=== PATIENT | female | born 1990 | race African-American/Black ===

== ENCOUNTER 2016-10-06 19:12 | Emergency (ER) | payer OTHER ==
--- NOTE | 2016-10-06 21:13 | EKG REPORT ---
SEVERITY:- OTHERWISE NORMAL ECG - SINUS TACHYCARDIA : Confirmed by: Noman Briseno MD 06-Oct-2016 21:12:30
--- NOTE | 2016-10-06 21:46 | ER Document Report ---
ED General - General Mode of Arrival: Ambulatory Information source: Patient TRAVEL OUTSIDE OF THE [place] IN LAST 30 DAYS: No <BEVERLY HINSON - Last Filed: 10/06/16 23:04> <GRANT WADE - Last Filed: 10/07/16 00:00> - General Chief Complaint: Chest Wall Pain Stated Complaint: CHEST DISCOMFORT Time Seen by Provider: 10/06/16 20:14 Notes: Patient is a 25 year old female who presents with 24-hour history of left-sided anterior wall chest pain. She endorses cough that also started 24 hours ago. She states "everything that makes the pain worse" and tried Tylenol, Advil and Tums with no relief of the pain. She states that the pain is worse with deep inspiration and movement of her left arm. Denies any fever, chills, shortness of breath, dyspnea on exertion, hemoptysis, or leg pain or lower extremity edema. She is no longer on oral contraception, last dose was September 19. She denies any recent travel longer than 1.5 hours. She denies any recent surgeries. (BEVERLY HINSON) - Related Data Allergies/Adverse Reactions: No Known Allergies Allergy (Verified 10/06/16 21:34) Past Medical History - Social History Smoking Status: Never Smoker Chew tobacco use (# tins/day): No Frequency of alcohol use: Occasional Drug Abuse: None Family History: Reviewed & Not Pertinent Patient has suicidal ideation: No Patient has homicidal ideation: No Neurological Medical History: Reports: Hx Migraine Renal/ Medical History: Denies: Hx Kidney Stones, Hx Peritoneal Dialysis Infectious Medical History: Denies: Hx HIV Past Surgical History: Reports: Hx Appendectomy, Hx Section - x2 - Immunizations Immunizations up to date: Yes Hx Diphtheria, Pertussis, Tetanus Vaccination: Yes <BEVERLY HINSON - Last Filed: 10/06/16 23:04> Review of Systems - Review of Systems Constitutional: See HPI EENT: No symptoms reported Cardiovascular: See HPI Respiratory: See HPI Gastrointestinal: No symptoms reported Genitourinary: No symptoms reported Female Genitourinary: No symptoms reported Musculoskeletal: No symptoms reported Skin: No symptoms reported Hematologic/Lymphatic: No symptoms reported Neurological/Psychological: No symptoms reported <BEVERLY HINSON - Last Filed: 10/06/16 23:04> Physical Exam <BEVERLY HINSON - Last Filed: 10/06/16 23:04> <GRANT WADE - Last Filed: 10/07/16 00:00> - Vital signs Vitals: Temp Pulse Resp BP Pulse Ox 99.3 F 110 H 18 115/73 98 10/06/16 19:34 10/06/16 19:34 10/06/16 19:34 10/06/16 19:34 10/06/16 19:34 - Notes Notes: PHYSICAL EXAM: CONSTITUTIONAL: Alert and oriented, well-appearing and in no acute distress. HENT: Normocephalic, atraumatic. Ear canals without erythema or foreign body, TMs pearly beltran with good bony landmarks. Nares clear without erythema, septal hematoma or deviation, airway patent. Oropharynx clear without erythema, tonsilar exudate or malocclusion. Trachea midline. Uvula midline. Moist mucous membranes. EYES: Pupils equal round and reactive to light, EOM intact. Sclera anicteric, conjunctiva are normal. No entrapment. NECK: supple without lymphadenopathy. No midline tenderness or paraspinous muscle spasms. No step-offs or deformities. ROM intact. HEART: Regular rate and rhythm without murmurs. LUNGS: CTAB and equal. No wheezes, rales or rhonchi. GI: Normactive bowel sounds. Nontender, non-distended. No organomegaly. no CVAT. 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 No rashes or lesions. No vaginal discharge or vaginal bleeding. Cervix without lesions. No cervical motion tenderness. BACK: nontender, no paraspinous spasm, 5+/5 strengths, DTRs 2+, SLR -. EXTREMITIES: Normal range of motion, no pitting edema. No cyanosis. Cap Refill < 3 seconds. NEURO: Cranial nerves grossly intact. Normal sensory/motor exams. PSYCH: Normal mood, normal affect. SKIN: Warm and dry. Normal turgor. No rashes or lesions noted. (BEVERLY HINSON) Course - Laboratory Result Diagrams: 10/06/16 21:05 10/06/16 21:05 <BEVERLY HINSON - Last Filed: 10/06/16 23:04> - Laboratory Result Diagrams: 10/06/16 21:05 10/06/16 21:05 <GRANT WADE Last Filed: 10/07/16 00:00> - Re-evaluation Re-evalutation: 10/06/16 20:21 Patient seen and examined. Chest pain is reproducible on exam, worse with deep inspiration and abduction of left arm. Stopped oral contraceptives approximately 1 month ago, denies any recent travel > 1.5 hours. WELLS CRITERIA: NO - Physical findings suggestive of DVT (unilateral leg swelling, calf or thigh tenderness) (3 points) NO - No alternative diagnosis better explains the illness (3 points) YES - Tachycardia with pulse >100 (1.5 points) NO - Immobilization (=3 days) or surgery in the previous four weeks (1.5 points ) NO - Prior history of DVT or pulmonary embolism (1.5 points) NO - Presence of hemoptysis (1 point) NO - Presence of malignancy (1 point) Total 1.5 points. Score <2: Low Probability for PE Suspect chest wall pain due to low Well's score and reproducible chest pain but with HR of 110 consistently with no prior documented episodes of tachycardia, will obtain d-dimer. If elevated, will proceed with CTA. 10/06/16 20:46 I have consulted with the supervisory physician, Dr. Cardona per [facility] guidelines. 10/06/16 21:30 elevated D-dimer 1.80. Will proceed with order for chest CTA. 10/06/16 23:07 Awaiting results of chest CTA - discussed care and management to this point with Rachel Mtz NP in signed out at end of my shift. (BEVERLY HINSON) - Vital Signs Vital signs: Temp Pulse Resp BP Pulse Ox 99.1 F 88 16 102/62 98 10/06/16 22:47 10/06/16 22:47 10/06/16 22:47 10/06/16 22:47 10/06/16 22:47 - Laboratory Laboratory results interpreted by me: 10/06/16 10/06/16 10/06/16 21:05 21:05 21:05 WBC 10.8 H D-Dimer 1.80 H Potassium 3.3 L BUN 6 L Discharge <BEVERLY HINSON - Last Filed: 10/06/16 23:04> <GRANT WADE - Last Filed: 10/07/16 00:00> - Discharge Clinical Impression: pneumonia left lower lobe Condition: Stable Disposition: HOME, SELF-CARE Additional Instructions: PNEUMONIA: Your examination indicates that you have pneumonia. This is an infection of the lung tissue, usually caused by bacteria or a virus. Symptoms include cough, fever, shaking chills, chest pain, shortness of breath, and coughing up bloody sputum. Treatment for bacterial pneumonia includes rest, antibiotics for 10 to 14 days, increasing your clear liquid intake, a cool mist humidifier at your bedside, and fever medication. Often, a repeat chest X-ray is performed in a few weeks--even if you feel better--to ascertain whether the infection has completely resolved and no underlying lung problem is present. You should call the physician if you develop persistent vomiting, high fever that does not respond to fever medication, increasing shortness of breath , confusion, or lethargy. Also, failure to improve within two to three days is an indication for re-examination. AZITHROMYCIN: Azithromycin (Zithromax) is a broad spectrum antibiotic in the same class as erythromycin. It can treat a variety of bacterial infections, but is most frequently used for respiratory infections. Azithromycin is extremely long-lasting. It accumulates in body tissues and continues to kill bacteria for many days. In order to improve absorption, Azithromycin should be taken at least one hour before or two hours after a meal. It does not have the same strong tendency to upset the stomach as erythromycin and is usually very well tolerated. Patients who have had a rash or other true allergic reactions to erythromycin should not take this medication. Call if you develop gastrointestinal distress, severe diarrhea, rash, hives, itching, or shortness of breath. FOLLOW-UP CARE: If you have been referred to a physician for follow-up care, call the physician s office for an appointment as you were instructed or within the next two days. If you experience worsening or a significant change in your symptoms, notify the physician immediately or return to the Emergency Department at any time for re-evaluation. Prescriptions: Azithromycin [Zithromax 250 mg Tablet] 250 mg PO ASDIR PRN #6 tablet PRN Reason: Forms: Return to Work Referrals: CELSO SCHMITZ MD [Primary Care Provider] - Follow up in 3-5 days
[2016-10-06 22:04] LABS: PROTHROMBIN TIME 14.5 SEC (11.4-15.4)
[2016-10-06 22:09] LABS: ALANINE AMINOTRANSFERASE 26 U/L (9-52); ALBUMIN 3.9 g/dL (3.5-5.0); ALKALINE PHOSPHATASE 79 U/L (38-126); ANION GAP 12 (5-19); ASPARTATE AMINO TRANSFERASE 18 U/L (14-36); BILIRUBIN,DIRECT 0.3 mg/dL (0.0-0.4); BILIRUBIN,TOTAL 0.8 mg/dL (0.2-1.3); BLOOD UREA NITROGEN 6 mg/dL (7-20); CALCIUM 9.1 mg/dL (8.4-10.2); CARBON DIOXIDE 25 mmol/L (22-30); CHLORIDE 105 mmol/L (98-107); CREATININE RESULT 0.63 mg/dL (0.52-1.25); GLUCOSE 97 mg/dL (75-110); POTASSIUM 3.3 mmol/L (3.6-5.0); SODIUM 141.8 mmol/L (137-145); TOTAL PROTEIN 7.1 g/dL (6.3-8.2)
[2016-10-06 22:17] LABS: ABSOLUTE EOSINOPHILS # (AUTO) 0.3 10^3/uL (0.0-0.6); ABSOLUTE LYMPHOCYTES (AUTO) 1.9 10^3/uL (0.5-4.7); ABSOLUTE NEUT (AUTO) 7.7 10^3/uL (1.7-8.2); BASOPHILS % (AUTO) 0.4 % (0-2); EOSINOPHILS % (AUTO) 2.7 % (0-6); HEMATOCRIT 42.4 % (36.0-47.0); HGB HCT DIFFERENCE -0.4; LYMPHOCYTES % (AUTO) 17.3 % (13-45); MEAN CORPUSCULAR HEMOGLOBIN 27.6 pg (27.0-33.4); MEAN CORPUSCULAR HGB CONC 32.9 g/dL (32.0-36.0); MEAN CORPUSCULAR VOLUME 84 fl (80-97); RED BLOOD COUNT 5.06 10^6/uL (3.72-5.28); RED CELL DISTRIBUTION WIDTH 12.9 % (11.5-14.0); SEGMENTED NEUTROPHILS % (AUTO) 70.6 % (42-78); WHITE BLOOD COUNT 10.8 10^3/uL (4.0-10.5)
--- NOTE | 2016-10-06 23:04 | RADIOLOGY REPORT (SQ) ---
EXAM DESCRIPTION: CTA CHEST COMPLETED DATE/TIME: 10/06/2016 10:03 pm REASON FOR STUDY: Eval for PE, elevated D-dimer(1.80), left side chest pain COMPARISON: None. TECHNIQUE: CT scan of the chest performed using helical scanning technique with dynamic intravenous contrast injection. Images reviewed with lung, soft tissue and bone windows. Reconstructed coronal and sagittal MPR images reviewed. Additional 3 dimensional post-processing performed to develop Maximal Intensity Projection images (HI P). All images stored on PACS. All CT scanners at this facility use dose modulation, iterative reconstruction, and/or weight based d osing when appropriate to reduce radiation dose to as low as reasonably achievable (ALARA). [facility]: Dose Right [facility]: CareDose [facility]: Dose Right [facility]: Teradose 4D [facility]: [employer] Cars CONTRAST TYPE AND DOSE: contrast/concentration: Isovue 370.00 mg/ml; Total Contrast Delivered: 61.0 ml; Total Saline Delivered: 100.0 ml RENAL FUNCTION: None required. The patient is less than 50 years old. RADIATION DOSE: Up-to-date CT equipment and radiation dose reduction techniques were employed. CTDIv ol: 14.3 - 16.5 mGy. DLP: 465 mGy-cm. . LIMITATIONS: None. FINDINGS: LUNGS AND PLEURA: Some ground-glass densities noted in the left lower lobe. There is some focal consolidations also noted in the left lower lobe. Concerning for possible infiltrate. No mas s lesions. No pneumothorax. No significant pleural effusion. AORTA AND GREAT VESSELS: No aneurysm or dissection. HEART: No pericardial effusion. PULMONARY ARTERIES: No emboli visualized in the main pulmonary arteries or the segmental branches. HILAR AND MEDIASTINAL STRUCTURES: Mild soft tissues prominence in the left hilum likely representing reactive adenopathy. No mediastinal adenopathy. No right hilar adenopathy. HARDWARE: None in the chest. UPPER ABDOMEN: No significant findings. Limited exam. THYROID AND OTHER SOFT TISSUES: No masses. No adenopathy. BONES: No acute or significant finding. 3D MIPS: Confirm above findings. OTHER: No other significant finding. IMPRESSION: 1. No acute pulmonary embolus identified 2. Focal consolidations in ground-glass densities noted in the left lower lobe concerning for infect ious infiltrate. Correlate clinically. No pleural effusion. No pneumothorax. TECHNICAL DOCUMENTATION: JOB ID: [id number] Quality ID # [id number]: Final reports with documentation of one or more dose reduction techniques (e.g., Au tomated exposure control, adjustment of the mA and/or kV according to patient size, use of iterative reconstruction technique) 2010 [employer]- All Rights Reserved
[2016-10-06] MEDS ORDERED: AZITHROMYCIN 250 MG TABLET PO ONE (23:49)
[2016-10-07 00:05] VITALS: BP 104/63
== END 2016-10-07 00:05 | disposition home or self-care (01) ==
LOC: ER 19:12
DX: J18.9 Pneumonia, unspecified organism (principal); R07.89 Other chest pain; R05 Cough
CPT/HCPCS: 36415; 71275; 80053; 81025; 85025; 85379; 85610; 93005; 93010; 99284

== ENCOUNTER 2017-05-17 17:00 | Emergency (ER) | payer OTHER ==
[2017-05-17] MEDS ORDERED: ONDANSETRON 4 MG TAB.RAPDIS PO ONE (19:46)
[2017-05-17] MEDS ORDERED: GUAIFENESIN 600 MG TABLET.SA PO ONE (19:46)
[2017-05-17] MEDS ORDERED: PSEUDOEPHEDRINE HCL 30 MG TABLET PO ONE (19:46)
[2017-05-17] MEDS ORDERED: IBUPROFEN 600 MG TABLET PO ONE (19:46)
[2017-05-17] MEDS ORDERED: LORATADINE 10 MG TABLET PO ONE (19:47)
--- NOTE | 2017-05-17 20:12 | ER Document Report ---
ED Respiratory Problem - General Chief Complaint: Cold Symptoms Stated Complaint: COLD SYMPTOMS Time Seen by Provider: 05/17/17 19:46 Mode of Arrival: Ambulatory Information source: Patient Notes: 26-year-old female presents to ED for cough cold congestion body aches but does not have any fever. She states she has been sick since Thursday morning. She states she has been taken [id number] TheraFlu with no relief. She states she was worried that she had the flu. TRAVEL OUTSIDE OF THE [place] IN LAST 30 DAYS: No - HPI Patient complains to provider of: Cough Onset: Other - Body Duration: Continuous Initiating Event: URI Quality of pain: Achy Severity: Moderate Pain Level: 4 Cough: Nonproductive Sputum amount: None Associated symptoms: Congestion, Cough, PND, Runny nose, Sinus pain/pressure, Other - Body aches. 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 denies: Thyroid Disfunction Patient has suicidal ideation: No Patient has homicidal ideation: No - Past Medical History Cardiac Medical History: Reports: None Pulmonary Medical History: Reports: Hx Pneumonia EENT Medical History: Reports: None Neurological Medical History: Reports: Hx Migraine Endocrine Medical History: Reports: None Renal/ Medical History: Reports: None Malignancy Medical History: Reports: None GI Medical History: Reports: None Musculoskeltal Medical History: Reports None Skin Medical History: Reports None Psychiatric Medical History: Reports: None Traumatic Medical History: Reports: None Past Surgical History: Reports: Hx Appendectomy, Hx Section - x2 - Immunizations Immunizations up to date: Yes Hx Diphtheria, Pertussis, Tetanus Vaccination: Yes Review of Systems - Review of Systems Notes: Constitutional: [PRESENT: as per HPI. ABSENT: chills, fever(s), headache(s), weight gain, weight loss] body aches Eyes: [ABSENT: visual disturbances] Ears: [ABSENT: hearing changes] Nasopharyngeal: Runny nose alternating with congestion, drainage in her throat, Cardiovascular: [ABSENT: chest pain, dyspnea on exertion, edema, orthropnea, palpitations] Respiratory: [ABSENT:hemoptysis] nonproductive cough Gastrointestinal: [ABSENT: abdominal pain, constipation, diarrhea, hematemesis, hematochezia, nausea, vomiting] Genitourinary: [ABSENT: dysuria, hematuria] Musculoskeletal: [ABSENT: joint swelling] body aches Integumentary: [ABSENT: rash, wounds] Neurological: [ABSENT: abnormal gait, abnormal speech, confusion, dizziness, focal weakness, syncope] Psychiatric: [ABSENT: anxiety, depression, homicidal ideation, suicidal ideation ] Endocrine: [ABSENT: cold intolerance, heat intolerance, menstrual abnormalities , polydipsia, polyuria] Hematologic/Lymphatic: [ABSENT: easy bleeding, easy bruising, lymphadenopathy] Physical Exam - Vital signs Vitals: Temp Pulse Resp BP Pulse Ox 98.6 F 64 16 109/70 99 05/17/17 17:32 05/17/17 17:32 05/17/17 17:32 05/17/17 17:32 05/17/17 17:32 - Notes Notes: PHYSICAL EXAMINATION: GENERAL: Well-appearing, well-nourished and in no acute distress. HEAD: Atraumatic, normocephalic. EYES: Pupils equal round and reactive to light, extraocular movements intact, conjunctiva are normal. ENT: Erythematous swollen nasal turbinates with yellow-green drainage, postnasal drip with cobblestone pattern to oropharynx. No hypertrophy or exudate to tonsils NECK: Normal range of motion, supple without lymphadenopathy LUNGS: Breath sounds clear to auscultation bilaterally and equal. No wheezes rales or rhonchi. Nonproductive cough HEART: Regular rate and rhythm without murmurs ABDOMEN: Soft, nontender, nondistended abdomen. No guarding, no rebound. No masses appreciated. Female : deferred Musculoskeletal: Normal range of motion, no pitting or edema. No cyanosis. No muscle tenderness but states she has body aches NEUROLOGICAL: Cranial nerves grossly intact. Normal speech, normal gait. Normal sensory, motor exams PSYCH: Normal mood, normal affect. SKIN: Warm, Dry, normal turgor, no rashes or lesions noted. Course - Vital Signs Vital signs: Temp Pulse Resp BP Pulse Ox 98.5 F 62 16 104/72 100 05/17/17 20:32 05/17/17 20:32 05/17/17 20:32 05/17/17 20:32 05/17/17 20:32 Discharge - Discharge Clinical Impression: URI (upper respiratory infection) Qualifiers: URI type: unspecified URI Qualified Code(s): J06.9 - Acute upper respiratory infection, unspecified Condition: Stable Disposition: HOME, SELF-CARE Instructions: Family Physicians / Practices Additional Instructions: UPPER RESPIRATORY ILLNESS: You have a viral infection of the respiratory passages -- a "cold." This common infection causes nasal congestion, drainage, and often sore throat and cough. It is highly contagious. The disease usually lasts about 10 to 14 days. There is no "cure" for the viral infection -- it must run its course. If there is a complication, such as bacterial infection in the nose, sinuses, middle ear, or bronchial tubes, antibiotics may be required. The antibiotics won't affect the virus. Drink plenty of fluids. A humidifier may help. An expectorant medication or decongestant may make you more comfortable. Use acetaminophen or ibuprofen for fever or aches. See the doctor if fever persists over two days, if there is any significant worsening of your symptoms, or if you simply fail to improve as expected. You have been treated with Claritin 10 mg, Sudafed 30 mg, Mucinex 600 mg, and ibuprofen 600 mg for your cough and cold symptoms. These are all over-the- counter medications that she can get from your local pharmacy. You were treated with Zofran 8 mg ODT which I will write you prescription for for your nausea and vomiting. Please follow-up with your primary doctor DECONGESTANT MEDICATION: A decongestant medicine has been suggested. Often this medicine is combined in the same tablet with an antihistamine or expectorant. This type of medicine is helpful in treating a bad cold or sinus condition, as well as in treatment of the nasal congestion of hay fever. It is not of much benefit for lung infections. Decongestant medicines are related to stimulants. They can cause an increase in blood pressure and heart rate. Persons with heart disease and high blood pressure should not take decongestants without discussing this with the physician. If you develop palpitations, chest pain, headache, or tremors, stop the medicine and consult your physician. COUGH-SUPPRESSANT & EXPECTORANT MEDICATION: You are to use a cough medication as needed for relief of symptoms. This medicine is a combination of an expectorant (to make the mucous thinner and more easily "coughed up") and a cough suppressant (to reduce the frequency of coughing). The cough-suppressant medicine is related to narcotics. You may experience mild nausea and sleepiness. Some patients who are very sensitive to narcotics may have stomach pain from this medicine. Taking the medicine with food reduces these side effects. Do not drive or work with machinery until you know how this medicine affects you. The expectorant should have no side effects. Iodine-containing expectorants (such as organidin) should not be taken by persons with active thyroid disease unless approved by your doctor. Call the doctor if you develop shortness of breath, hives, rash, itching, lightheadedness, or severe nausea and vomiting. USE OF ACETAMINOPHEN (Tylenol): Acetaminophen may be taken for pain relief or fever control. It's much safer than aspirin, offering a wider range of "safe" dosages. It is safe during . Some brand names are Tylenol, Panadol, Datril, Anacin 3, Tempra, and Liquiprin. Acetaminophen can be repeated every four hours. The following are maximum recommended dosages: >89 pounds or adults 650 mg to 900 mg Acetaminophen can be repeated every four hours. Maximum dose not to exceed 4000 mg a day. Antinausea Medication You have been given a medication to suppress nausea and vomiting. This type of medication can be given as a shot, pill, or suppository. It will usually last for many hours. Pills and shots usually last six to eight hours, suppositories last about 12 hours. For the typical illness, only one or two doses of the medication may be necessary. Mild lightheadedness may occur. This type of medicine can cause drowsiness. Do not drive or operate dangerous machinery while under its influence. Do not mix with alcohol. See your doctor at once if you have muscle spasms or tightness, or uncontrollable motions (particularly of the neck, mouth, or jaw). Persistent vomiting or severe lightheadedness should also be evaluated by the physician. FOLLOW-UP CARE: If you have been referred to a physician for follow-up care, call the physician s office for an appointment as you were instructed or within the next two days. If you experience worsening or a significant change in your symptoms, notify the physician immediately or return to the Emergency Department at any time for re-evaluation. Prescriptions: Ondansetron [Zofran Odt 4 mg Tablet] 1 tab PO Q6H #15 tab.rapdis Forms: Return to Work
[2017-05-17 20:33] VITALS: BP 104/72
== END 2017-05-17 20:32 | disposition home or self-care (01) ==
LOC: ER 17:00
DX: J06.9 Acute upper respiratory infection, unspecified (principal); R05 Cough; R09.81 Nasal congestion; M79.1 Myalgia; R09.89 Other specified symptoms and signs involving the circulatory and respiratory systems
CPT/HCPCS: 99283; S0119

== ENCOUNTER 2017-09-15 19:58 | Emergency (ER) | payer OTHER ==
[2017-09-15 22:23] LABS: APPEARANCE,URINE CLEAR; BILIRUBIN,URINE NEGATIVE (NEGATIVE); COLOR,URINE YELLOW; GLUCOSE, URINE NEGATIVE (NEGATIVE); KETONES,URINE 20 mg/dL (NEGATIVE); LEUKOCYTE ESTERASE,URINE TRACE (NEGATIVE); NITRITE,URINE NEGATIVE (NEGATIVE); PROTEIN,URINE NEGATIVE (NEGATIVE); URINE SPECIFIC GRAVITY 1.012; UROBILINOGEN,URINE NEGATIVE mg/dL (<2.0)
[2017-09-15 22:26] LABS: HEMATOCRIT 41.5 % (36.0-47.0); HEMOGLOBIN 14.2 g/dL (12.0-15.5); MEAN CORPUSCULAR HEMOGLOBIN 28.9 pg (27.0-33.4); MEAN CORPUSCULAR HGB CONC 34.2 g/dL (32.0-36.0); MEAN CORPUSCULAR VOLUME 84 fl (80-97); PLATELET COUNT 312 10^3/uL (150-450); RED BLOOD COUNT 4.92 10^6/uL (3.72-5.28); WHITE BLOOD COUNT 5.2 10^3/uL (4.0-10.5)
[2017-09-15 22:34] LABS: ALANINE AMINOTRANSFERASE 21 U/L (9-52); ALBUMIN 4.4 g/dL (3.5-5.0); ALKALINE PHOSPHATASE 69 U/L (38-126); ANION GAP 11 (5-19); ASPARTATE AMINO TRANSFERASE 21 U/L (14-36); BILIRUBIN,DIRECT 0.3 mg/dL (0.0-0.4); BILIRUBIN,TOTAL 0.8 mg/dL (0.2-1.3); BLOOD UREA NITROGEN 9 mg/dL (7-20); CALCIUM 9.8 mg/dL (8.4-10.2); CARBON DIOXIDE 24 mmol/L (22-30); CHLORIDE 106 mmol/L (98-107); GLUCOSE 110 mg/dL (75-110); POTASSIUM 3.9 mmol/L (3.6-5.0); SODIUM 141.2 mmol/L (137-145); TOTAL PROTEIN 7.2 g/dL (6.3-8.2)
[2017-09-15 22:44] LABS: ABSOLUTE LYMPHOCYTES# (MANUAL) 1.9 10^3/uL (0.5-4.7); ABSOLUTE MONOCYTES # (MANUAL) 0.3 10^3/uL (0.1-1.4); ABSOLUTE NEUTROPHILS# (MANUAL) 3.1 10^3/uL (1.7-8.2); BASOPHILS % (MANUAL) 0 % (0-2); EOSINOPHILS % (MANUAL) 0 % (0-6); LYMPHOCYTES % (MANUAL) 36 % (13-45); MONOCYTES % (MANUAL) 5 % (3-13); SEGMENTED NEUTROPHILS % (MAN) 59 % (42-78); TOTAL CELLS COUNTED 100
[2017-09-15 22:45] LABS: HYPOCHROMASIA SLIGHT
[2017-09-15 22:46] LABS: PLATELET COMMENT ADEQUATE; PLATELET LARGE PRESENT
[2017-09-15 22:47] LABS: POIKILOCYTOSIS SLIGHT; TEAR DROP CELLS SLIGHT
[2017-09-15] MEDS ORDERED: NORMAL SALINE 500 ML IV ONE (23:02)
--- NOTE | 2017-09-15 23:06 | ER Document Report ---
ED General - General Chief Complaint: Nausea/Vomiting Stated Complaint: DIZZY,NAUSEA,VOMITING Time Seen by Provider: 09/15/17 22:55 TRAVEL OUTSIDE OF THE [place] IN LAST 30 DAYS: No - HPI Notes: Patient is a 26-year-old female no significant past medical history aside from intermittent headaches who presents to the ED complaining of a frontal headache , nausea/vomiting, occasional dizziness 1-2 days. Patient states that she has vomited a couple times today, but has had nausea persistently. Patient states that the headache has been intermittent as well and does not radiate. Patient states that she does have some light sensitivity associated with her headache. Patient states that all the symptoms are normal for her when she is a headache. Last menstrual period was last week. Patient states that she is still urinating normally and having normal bowel movements. Denies any vaginal discharge, odor, or other bleeding. No other concerns or complaints at this time. Denies any fever, head injury, neck pain, changes in vision/speech/ mentation/hearing, URI, sore throat, chest pain, palpitations, syncope, cough, shortness of breath, wheeze, dyspnea, abdominal pain, diarrhea, urinary retention, dysuria, hematuria, back pain, joint pain, loss of control of bowel or bladder, numbness/tingling, muscle paralysis/weakness, or rash. - Related Data Allergies/Adverse Reactions: No Known Allergies Allergy (Verified 10/06/16 21:34) Past Medical History - Social History Smoking Status: Never Smoker Chew tobacco use (# tins/day): No Frequency of alcohol use: None Drug Abuse: None Family History: Arthritis, CAD, COPD, CVA, DM, Hyperlipidemia, Hypertension, Malignancy. denies: Thyroid Disfunction Patient has suicidal ideation: No Patient has homicidal ideation: No Pulmonary Medical History: Reports: Hx Pneumonia Neurological Medical History: Reports: Hx Migraine Renal/ Medical History: Denies: Hx Kidney Stones, Hx Peritoneal Dialysis Past Surgical History: Reports: Hx Appendectomy, Hx Section - x2 - Immunizations Immunizations up to date: Yes Hx Diphtheria, Pertussis, Tetanus Vaccination: Yes Review of Systems - Review of Systems -: Yes All other systems reviewed and negative Physical Exam - Vital signs Vitals: Temp Pulse Resp BP Pulse Ox 99.4 F 102 H 20 112/68 98 09/15/17 20:30 09/15/17 20:30 09/15/17 20:30 09/15/17 20:30 09/15/17 20:30 - Notes Notes: PHYSICAL EXAMINATION: GENERAL: Well-appearing, well-nourished and in no acute distress. A&Ox4. Answers questions appropriately. HEAD: Atraumatic, normocephalic. Non-tender. EYES: Pupils equal round and reactive to light, extraocular movements intact, sclera anicteric, conjunctiva are normal. no nystagmus. ENT: Nares patent and without discharge. oropharynx clear without exudates. No tonsilar hypertrophy or erythema. Moist mucous membranes. No sinus tenderness. NECK: Normal range of motion, supple without lymphadenopathy. No rigidity. No midline tenderness. Kernig/brudzinski neg. LUNGS: Breath sounds clear to auscultation bilaterally and equal. No wheezes rales or rhonchi. HEART: Regular rate and rhythm without murmurs, rubs, gallops. ABDOMEN: Soft, nontender, nondistended abdomen. No guarding, no rebound. No masses appreciated. Normal bowel sounds present. No CVA tenderness bilaterally. Musculoskeletal: Ext b/l: FROM to passive/active. Strength 5+/5. No deficits noted. No bony tenderness of extremities. Extremities: No cyanosis, clubbing, or edema b/l. Peripheral pulses 2+. Capillary refill less than 2 seconds. NEUROLOGICAL: NIH 0. GCS 15. Cranial nerves grossly intact. Normal speech, normal gait. Normal sensory, motor exams. Reflexes 2+ b/l. SUZIE's negative. Pronator drift negative. PSYCH: Normal mood, normal affect. SKIN: Warm, Dry, normal turgor, no rashes or lesions noted. Course - Re-evaluation Re-evalutation: 09/16/17 00:26 Patient is an afebrile, well-hydrated, 26-year-old female who presents to the ED with an acute UTI, headache, nausea/vomiting. Vitals are acceptable. PE is otherwise unremarkable for any focal neurological deficits. Suspect patient's headache is a migraine headache based on H&P. She has no significant tachycardia, tachypnea, or hypoxia. She is tolerating p.o. without difficulties. She is nontoxic-appearing. Patient has not had any episodes of emesis during her stay. Toradol, Compazine, Benadryl given today. Pt's BROWN resolved. Fluids also provided. CBC, CMP, HCG unremarkable. UC pending. First dose of Keflex given p.o. No other labs or imaging warranted at this time based on H&P. Patient's abdomen is otherwise soft and nontender. Low suspicion for any acute abdomen, acute glaucoma, temporal arteritis, meningitis , intracranial hemorrhage, ischemic stroke, or fracture at this time. Patient is aware that this condition can change from initial presentation and that she needs to monitor symptoms closely for any acute changes. No syndrome with a prescription for Keflex as well as Zofran. Conservative measures otherwise for symptoms. Recheck with your PCM in 3-5 days. Return to the ED with any worsening/concerning symptoms otherwise as reviewed in discharge. Patient is in agreement. - Vital Signs Vital signs: Temp Pulse Resp BP Pulse Ox 99.4 F 102 H 20 112/68 98 09/15/17 20:30 09/15/17 20:30 09/15/17 20:30 09/15/17 20:30 09/15/17 20:30 - Laboratory Result Diagrams: 09/15/17 21:54 09/15/17 21:54 Laboratory results interpreted by me: 09/15/17 21:54 Urine Ketones 20 H Urine Blood LARGE H Ur Leukocyte Esterase TRACE H Discharge - Discharge Clinical Impression: Acute UTI (urinary tract infection) Headache Qualifiers: Headache type: unspecified Headache chronicity pattern: acute headache Intractability: not intractable Qualified Code(s): R51 - Headache Condition: Stable Disposition: HOME, SELF-CARE Instructions: Antinausea Medication ([facility]), Cephalexin ([facility]), Headache ([facility]), Nausea or Vomiting, Nonspecific ([facility]), Urinary Tract Infection ([facility]) Additional Instructions: Push fluids (i.e. water, cranberry juice) Proper hygenic technique Keep the skin clean Tylenol/ibuprofen as needed May use over the counter AZO for burning with urination Take medications as directed F/u with your PCM in 3-5 days for a recheck Consider consult with a Urologist for ongoing/worsening symptoms. Return to the ED with any worsening symptoms and/or development of fever, headache, chest pain, palpitations, syncope, shortness of breath, trouble breathing, abdominal pain, n/v/d, blood in stool/urine, loss of control of bowel /bladder, urinary retention, or other worsening symptoms that are concerning to you. Prescriptions: Cephalexin Monohydrate [Keflex 500 mg Capsule] 500 mg PO BID #14 capsule Ondansetron [Zofran Odt 4 mg Tablet] 1 - 2 tab PO Q4H PRN #15 tab.rapdis PRN Reason: For Nausea/Vomiting Referrals: [facility] [Provider Group] - Follow up as needed [facility] [Provider Group] - Follow up as needed
[2017-09-15] MEDS ORDERED: KETOROLAC TROMETHAMINE INJ/PF 30 MG/1 ML SDV IV ONE (23:07)
[2017-09-15] MEDS ORDERED: PROCHLORPERAZINE EDISYLATE INJ 10 MG/2 ML VIAL IV ONE (23:07)
[2017-09-15] MEDS ORDERED: DIPHENHYDRAMINE HCL 50 MG/ML VIAL IV ONE (23:07)
[2017-09-16] MEDS ORDERED: CEPHALEXIN 500 MG CAPSULE PO ONE (00:28)
[2017-09-16 01:16] VITALS: BP 94/72
== END 2017-09-16 01:15 | disposition home or self-care (01) ==
LOC: ER 19:58
DX: N39.0 Urinary tract infection, site not specified (principal); R51 Headache; R42 Dizziness and giddiness; R11.2 Nausea with vomiting, unspecified; H53.149 Visual discomfort, unspecified; Z82.49 Family history of ischemic heart disease and other diseases of the circulatory system; Z83.3 Family history of diabetes mellitus; Z90.49 Acquired absence of other specified parts of digestive tract; Z98.890 Other specified postprocedural states
CPT/HCPCS: 99284; 96374; 96375; 36415; 87086; 84703; 85025; 87088; 80053; 81001; 87186; J1200; J1885; J0780; J7040

== ENCOUNTER 2018-11-05 15:29 | Emergency (ER) | payer OTHER ==
[2018-11-05] MEDS ORDERED: ONDANSETRON HCL INJ/PF 4 MG/2 ML SDV IV ONE (15:57)
[2018-11-05] MEDS ORDERED: NORMAL SALINE 1000 ML 1,000 ML IV ONE (15:57)
--- NOTE | 2018-11-05 16:00 | ER Document Report ---
ED Medical Screen (RME) - General Chief Complaint: Nausea/Vomiting Stated Complaint: VOMITING Time Seen by Provider: 11/05/18 15:51 Primary Care Provider: AGNES LANDRUM MD [Primary Care Provider] - Follow up as needed Notes: Patient is a 28-year-old female who presents emergency department with a chief complaint of vomiting. She states that she has been vomiting since 930 yesterday morning. She has vomited multiple times. Admits to one bout of diarrhea. Patient states that she still feels nauseous. Denies any abdominal pain, dysuria, chest pain, or any other symptoms. Last menstrual cycle was October 29. Patient has history of migraines, and appendectomy, anemia with blood transfusions in 2014. Exam: Soft, nontender abdomen. I have greeted and performed a rapid initial assessment of this patient. A comprehensive ED assessment and evaluation of the patient, analysis of test results and completion of medical decision making process will be conducted by an additional ED providers. TRAVEL OUTSIDE OF THE [place] IN LAST 30 DAYS: No - Related Data Allergies/Adverse Reactions: No Known Allergies Allergy (Verified 11/05/18 15:31) Past Medical History Pulmonary Medical History: Reports: Hx Pneumonia Neurological Medical History: Reports: Hx Migraine Renal/ Medical History: Denies: Hx Kidney Stones, Hx Peritoneal Dialysis Past Surgical History: Reports: Hx Appendectomy, Hx Section - x2 - Immunizations Immunizations up to date: Yes Hx Diphtheria, Pertussis, Tetanus Vaccination: Yes Physical Exam - Vital signs Vitals: Temp Pulse Resp BP Pulse Ox 98.9 F 100 16 110/66 97 11/05/18 15:30 11/05/18 15:30 11/05/18 15:30 11/05/18 15:30 11/05/18 15:30 Course - Vital Signs Vital signs: Temp Pulse Resp BP Pulse Ox 98.9 F 100 16 110/66 97 11/05/18 15:30 11/05/18 15:30 11/05/18 15:30 11/05/18 15:30 11/05/18 15:30 Doctor's Discharge - Discharge Referrals: AGNES LANDRUM MD [Primary Care Provider] - Follow up as needed
[2018-11-05 17:18] LABS: APPEARANCE,URINE CLOUDY; BILIRUBIN,URINE NEGATIVE (NEGATIVE); COLOR,URINE YELLOW; GLUCOSE, URINE NEGATIVE (NEGATIVE); KETONES,URINE 80 mg/dL (NEGATIVE); LEUKOCYTE ESTERASE,URINE MODERATE (NEGATIVE); NITRITE,URINE NEGATIVE (NEGATIVE); PROTEIN,URINE NEGATIVE (NEGATIVE); URINE SPECIFIC GRAVITY 1.015; UROBILINOGEN,URINE NEGATIVE mg/dL (<2.0)
[2018-11-05 17:43] LABS: ABSOLUTE LYMPHOCYTES (AUTO) 0.9 10^3/uL (0.5-4.7); ABSOLUTE MONOCYTES (AUTO) 0.2 10^3/uL (0.1-1.4); ABSOLUTE NEUT (AUTO) 2.4 10^3/uL (1.7-8.2); BASOPHILS % (AUTO) 0.9 % (0-2); EOSINOPHILS % (AUTO) 0.1 % (0-6); HEMATOCRIT 43.8 % (36.0-47.0); HEMOGLOBIN 14.8 g/dL (12.0-15.5); LYMPHOCYTES % (AUTO) 25.6 % (13-45); MEAN CORPUSCULAR HGB CONC 33.8 g/dL (32.0-36.0); MEAN CORPUSCULAR VOLUME 83 fl (80-97); PLATELET COUNT 316 10^3/uL (150-450); RED BLOOD COUNT 5.29 10^6/uL (3.72-5.28); RED CELL DISTRIBUTION WIDTH 12.9 % (11.5-14.0); SEGMENTED NEUTROPHILS % (AUTO) 68.4 % (42-78); TOTAL CELLS COUNTED % (AUTO) 100 %; WHITE BLOOD COUNT 3.6 10^3/uL (4.0-10.5)
--- NOTE | 2018-11-05 17:52 | ER Document Report ---
HPI - HPI Patient complains to provider of: Nausea vomiting diarrhea Time Seen by Provider: 11/05/18 15:51 Onset: Yesterday Onset/Duration: Persistent Quality of pain: No pain Pain Level: Denies Context: Patient presents reporting nausea vomiting and diarrhea that started yesterday. Patient's had diarrhea x1 episode today but has had numerous episodes of vomiting. Patient was seen in the triage area and given IV antinausea medication. Patient has not had any vomiting since then and has tolerated eating chicken nuggets. She denies any abdominal pain Associated Symptoms: Diarrhea, Nausea, Vomiting. denies: Nonproductive cough, Productive cough, Fever Exacerbated by: Denies Relieved by: Denies Similar symptoms previously: Yes Recently seen / treated by doctor: No - ROS ROS below otherwise negative: Yes Systems Reviewed and Negative: Yes All other systems reviewed and negative - CONSTITUTIONAL Constitutional: DENIES: Fever - NEURO Neurology: DENIES: Headache - RESPIRATORY Respiratory: DENIES: Coughing - GASTROINTESTINAL Gastrointestinal: REPORTS: Nausea, Patient vomiting, Diarrhea. 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 denies: Thyroid Disfunction Patient has suicidal ideation: No Patient has homicidal ideation: No Pulmonary Medical History: Reports: Hx Pneumonia Neurological Medical History: Reports: Hx Migraine Renal/ Medical History: Denies: Hx Kidney Stones, Hx Peritoneal Dialysis Past Surgical History: Reports: Hx Appendectomy, Hx Section - x2 - Immunizations Immunizations up to date: Yes Hx Diphtheria, Pertussis, Tetanus Vaccination: Yes Vertical Provider Document - CONSTITUTIONAL Agree With Documented VS: Yes Exam Limitations: No Limitations General Appearance: WD/WN, No Apparent Distress - INFECTION CONTROL TRAVEL OUTSIDE OF THE [place] IN LAST 30 DAYS: No - HEENT HEENT: Atraumatic, Normocephalic - NECK Neck: Normal Inspection, Supple. negative: Lymphadenopathy-Left, Lymphadenopathy-Right - RESPIRATORY Respiratory: Breath Sounds Normal, No Respiratory Distress - CARDIOVASCULAR Cardiovascular: Regular Rate, Regular Rhythm, No Murmur - GI/ABDOMEN Gastrointestinal: Abdomen Soft, Abdomen Non-Tender, No Organomegaly, Normal Bowel Sounds - BACK Back: Normal Inspection. negative: CVA Tenderness-Right, CVA Tenderness-Left - MUSCULOSKELETAL/EXTREMETIES Musculoskeletal/Extremeties: BREEZY FROM - NEURO Level of Consciousness: Awake, Alert, Appropriate Motor/Sensory: No Motor Deficit - DERM Integumentary: Warm, Dry, No Rash Course - Re-evaluation Re-evalutation: 11/05/18 18:27 Patient denies any nausea or vomiting since receiving the medication. Abdomen soft nontender. Patient nontoxic in appearance. Patient with incidental UTI noted on urinalysis. - Vital Signs Vital signs: Temp Pulse Resp BP Pulse Ox 98.9 F 100 16 110/66 97 11/05/18 15:30 11/05/18 15:30 11/05/18 15:30 11/05/18 15:30 11/05/18 15:30 - Laboratory Result Diagrams: 11/05/18 17:20 11/05/18 17:20 Laboratory results interpreted by me: 11/05/18 16:00 Urine Ketones 80 H Urine Blood MODERATE H Ur Leukocyte Esterase MODERATE H 11/05/18 18:27 Labs- Entire Visit 11/05/18 11/05/18 11/05/18 16:00 17:20 17:20 WBC 3.6 L RBC 5.29 H Hgb 14.8 Hct 43.8 MCV 83 MCH 28.0 MCHC 33.8 RDW 12.9 Plt Count 316 Seg Neutrophils % 68.4 Lymphocytes % 25.6 Monocytes % 5.0 Eosinophils % 0.1 Basophils % 0.9 Absolute Neutrophils 2.4 Absolute Lymphocytes 0.9 Absolute Monocytes 0.2 Absolute Eosinophils 0.0 Absolute Basophils 0.0 Sodium 139.5 Potassium 4.5 Chloride 103 Carbon Dioxide 26 Anion Gap 11 BUN 10 Creatinine 0.71 Est GFR ( Amer) > 60 Est GFR (Non-Af Amer) > 60 Glucose 96 Calcium 10.2 Total Bilirubin 1.0 Direct Bilirubin 0.5 H Neonat Total Bilirubin Not Reportable Neonat Direct Bilirubin Not Reportable Neonat Indirect Bili Not Reportable AST 44 H ALT 19 Alkaline Phosphatase 81 Total Protein 9.1 H Albumin 5.1 H Lipase 102.6 Serum HCG, Qual Urine Color YELLOW Urine Appearance CLOUDY Urine pH 5.0 Ur Specific [place] 1.015 Urine Protein NEGATIVE Urine Glucose (UA) NEGATIVE Urine Ketones 80 H Urine Blood MODERATE H Urine Nitrite NEGATIVE Urine Bilirubin NEGATIVE Urine Urobilinogen NEGATIVE Ur Leukocyte Esterase MODERATE H Urine WBC (Auto) 37 Urine RBC (Auto) 12 Urine Bacteria (Auto) 2+ Squamous Epi Cells Auto 29 Urine Mucus (Auto) MOD Urine Ascorbic Acid NEGATIVE 11/05/18 17:20 WBC RBC Hgb Hct MCV MCH MCHC RDW Plt Count Seg Neutrophils % Lymphocytes % Monocytes % Eosinophils % Basophils % Absolute Neutrophils Absolute Lymphocytes Absolute Monocytes Absolute Eosinophils Absolute Basophils Sodium Potassium Chloride Carbon Dioxide Anion Gap BUN Creatinine Est GFR ( Amer) Est GFR (Non-Af Amer) Glucose Calcium Total Bilirubin Direct Bilirubin Neonat Total Bilirubin Neonat Direct Bilirubin Neonat Indirect Bili AST ALT Alkaline Phosphatase Total Protein Albumin Lipase Serum HCG, Qual NEGATIVE Urine Color Urine Appearance Urine pH Ur Specific [place] Urine Protein Urine Glucose (UA) Urine Ketones Urine Blood Urine Nitrite Urine Bilirubin Urine Urobilinogen Ur Leukocyte Esterase Urine WBC (Auto) Urine RBC (Auto) Urine Bacteria (Auto) Squamous Epi Cells Auto Urine Mucus (Auto) Urine Ascorbic Acid Discharge - Discharge Clinical Impression: Nausea vomiting and diarrhea UTI (urinary tract infection) Qualifiers: Urinary tract infection type: site unspecified Hematuria presence: with hematuria Qualified Code(s): N39.0 - Urinary tract infection, site not specified Condition: Stable Disposition: HOME, SELF-CARE Instructions: Antinausea Medication ([facility]), Cephalexin ([facility]), Diarrhea, Nonspecific ([facility]), Intravenous (IV) Fluids ([facility]), Urinary Tract Infection ([facility]), Vomiting ([facility]) Additional Instructions: Return immediately for any new or worsening symptoms Followup with your primary care provider, call tomorrow to make a followup appointment Urine culture is pending, we will call if you need any different treatment Prescriptions: Cephalexin Monohydrate [Keflex 500 mg Capsule] 500 mg PO BID 5 Days capsule Ondansetron HCl [Zofran 4 mg Tablet] 1 - 2 tab PO Q6 PRN #15 tablet PRN Reason: Forms: Return to Work Referrals: AGNES LANDRUM MD [Primary Care Provider] - Follow up as needed
[2018-11-05 18:03] LABS: ALBUMIN 5.1 g/dL (3.5-5.0); ALKALINE PHOSPHATASE 81 U/L (38-126); ANION GAP 11 (5-19); ASPARTATE AMINO TRANSFERASE 44 U/L (14-36); BILIRUBIN,DIRECT 0.5 mg/dL (0.0-0.4); BLOOD UREA NITROGEN 10 mg/dL (7-20); CALCIUM 10.2 mg/dL (8.4-10.2); CARBON DIOXIDE 26 mmol/L (22-30); CHLORIDE 103 mmol/L (98-107); GLUCOSE 96 mg/dL (75-110); POTASSIUM 4.5 mmol/L (3.6-5.0); TOTAL PROTEIN 9.1 g/dL (6.3-8.2)
[2018-11-05 18:46] VITALS: BP 120/67
== END 2018-11-05 18:45 | disposition home or self-care (01) ==
LOC: ER 15:29
DX: N39.0 Urinary tract infection, site not specified (principal); R11.2 Nausea with vomiting, unspecified; R19.7 Diarrhea, unspecified
CPT/HCPCS: 36415; 87086; 83690; 84703; 85025; 87088; 80053; 81001; 87186; J2405; J7030; 96361; 96374; 99284

== ENCOUNTER 2018-12-27 19:30 | Emergency (ER) | payer OTHER ==
--- NOTE | 2018-12-27 21:06 | ER Document Report ---
ED Medical Screen (RME) - General Chief Complaint: Back Pain Stated Complaint: LOWER BACK PAIN Time Seen by Provider: 12/27/18 20:50 Primary Care Provider: AGNES LANDRUM MD [Primary Care Provider] - Follow up as needed TRAVEL OUTSIDE OF THE [place] IN LAST 30 DAYS: No - HPI Notes: 12/27/18 21:03 Patient is a 28-year-old G3, P2 female presenting with a chief complaint of left flank pain that woke her from sleep approximately 16 hours prior to presentation. Patient states that she is approximately 8 weeks and was seen by her jinrikisha driver 4 days ago; patient states that the provider said "everything looked fine." Patient denies vaginal bleeding. Patient states her to prior pregnancies were carried to term and she underwent for both of them. Patient states she has had one episode of nausea and vomiting. Patient denies dysuria, history of kidney stones, recent trauma. I have treated and performed a rapid initial assessment of this patient. C opperhead to the ED assessment and evaluation of the patient, analysis of the test results, and completion of medical decision making process will be conducted by additional ED providers. - Related Data Allergies/Adverse Reactions: No Known Allergies Allergy (Verified 11/05/18 15:31) Past Medical History - Social History Chew tobacco use (# tins/day): No Frequency of alcohol use: None Drug Abuse: None Pulmonary Medical History: Reports: Hx Pneumonia Neurological Medical History: Reports: Hx Migraine Renal/ Medical History: Denies: Hx Kidney Stones, Hx Peritoneal Dialysis Past Surgical History: Reports: Hx Appendectomy, Hx Section - x2 - Immunizations Immunizations up to date: Yes Hx Diphtheria, Pertussis, Tetanus Vaccination: Yes Physical Exam - Vital signs Vitals: Temp Pulse Resp BP Pulse Ox 98.0 F 111 H 18 111/69 100 12/27/18 19:57 12/27/18 19:57 12/27/18 19:57 12/27/18 19:57 12/27/18 19:57 - General General appearance: Appears well, Alert In distress: None - Respiratory Respiratory status: No respiratory distress - Cardiovascular Rhythm: Regular Heart sounds: Normal auscultation - Abdominal Inspection: Normal Distension: No distension Bowel sounds: Normal - Back Back: CVA tenderness - Positive CVA tenderness to light percussion on patient's left side. Course - Vital Signs Vital signs: Temp Pulse Resp BP Pulse Ox 98.0 F 111 H 18 111/69 100 12/27/18 19:57 12/27/18 19:57 12/27/18 19:57 12/27/18 19:57 12/27/18 19:57 Doctor's Discharge - Discharge Referrals: AGNES LANDRUM MD [Primary Care Provider] - Follow up as needed
[2018-12-27 21:30] LABS: APPEARANCE,URINE CLOUDY; BILIRUBIN,URINE NEGATIVE (NEGATIVE); COLOR,URINE YELLOW; GLUCOSE, URINE NEGATIVE (NEGATIVE); KETONES,URINE TRACE mg/dL (NEGATIVE); LEUKOCYTE ESTERASE,URINE LARGE (NEGATIVE); NITRITE,URINE NEGATIVE (NEGATIVE); PROTEIN,URINE 100 mg/dL (NEGATIVE); URINE SPECIFIC GRAVITY 1.011
[2018-12-27 22:00] LABS: ABSOLUTE BASOPHILS # (AUTO) 0.1 10^3/uL (0.0-0.2); ABSOLUTE MONOCYTES (AUTO) 0.7 10^3/uL (0.1-1.4); ABSOLUTE NEUT (AUTO) 6.8 10^3/uL (1.7-8.2); BASOPHILS % (AUTO) 0.7 % (0-2); EOSINOPHILS % (AUTO) 0.4 % (0-6); HEMATOCRIT 37.7 % (36.0-47.0); LYMPHOCYTES % (AUTO) 20.7 % (13-45); MEAN CORPUSCULAR HEMOGLOBIN 28.4 pg (27.0-33.4); MEAN CORPUSCULAR HGB CONC 34.5 g/dL (32.0-36.0); MEAN CORPUSCULAR VOLUME 82 fl (80-97); PLATELET COUNT 326 10^3/uL (150-450); RED BLOOD COUNT 4.58 10^6/uL (3.72-5.28); RED CELL DISTRIBUTION WIDTH 13.6 % (11.5-14.0); SEGMENTED NEUTROPHILS % (AUTO) 71.2 % (42-78); TOTAL CELLS COUNTED % (AUTO) 100 %; WHITE BLOOD COUNT 9.6 10^3/uL (4.0-10.5)
[2018-12-27 22:15] LABS: ALBUMIN 4.4 g/dL (3.5-5.0); ALKALINE PHOSPHATASE 60 U/L (38-126); ANION GAP 9 (5-19); ASPARTATE AMINO TRANSFERASE 18 U/L (14-36); BILIRUBIN,DIRECT 0.1 mg/dL (0.0-0.4); BILIRUBIN,TOTAL 0.6 mg/dL (0.2-1.3); BLOOD UREA NITROGEN 7 mg/dL (7-20); CALCIUM 9.7 mg/dL (8.4-10.2); CARBON DIOXIDE 28 mmol/L (22-30); CHLORIDE 100 mmol/L (98-107); GLUCOSE 93 mg/dL (75-110); POTASSIUM 4.1 mmol/L (3.6-5.0); TOTAL PROTEIN 7.3 g/dL (6.3-8.2)
--- NOTE | 2018-12-27 22:43 | RADIOLOGY REPORT (SQ) ---
EXAM DESCRIPTION: US TRANSVAGINAL COMPLETED DATE/TME: 12/27/2018 21:00 CLINICAL HISTORY: 28 years, Female, 8 weeks with left flank pain Findings: The uterus is retroverted and measures 9.3 x 7.3 x 5.9 cm. Single viable IUP demonstrates estimated gestational age is eight weeks and six days. Estimated date of delivery is 08/02/2019. heart rate measures 180 bpm. The right ovary measures 1.8 x 1.8 x 0.8 cm. Left ovary measures 1.9 x 1.7 x 1.5 cm. Vascular flow is preserved within both ovaries on color and spectral Doppler imaging. No abnormal adnexal masses. Cervix is closed measures 2.3 cm. IMPRESSION: Single viable IUP of eight weeks and six days. heart rate preserved.
[2018-12-27] MEDS ORDERED: CEFTRIAXONE 1 GM/D5W RTU 1 GM/50 ML RTUPB IV ONE (23:28)
[2018-12-27] MEDS ORDERED: ACETAMINOPHEN 325 MG TABLET PO ONE (23:28)
--- NOTE | 2018-12-27 23:56 | ER Document Report ---
ED GI/ - General Chief Complaint: Back Pain Stated Complaint: LOWER BACK PAIN Time Seen by Provider: 12/27/18 20:50 Notes: Patient is a 28-year-old female, G3, P2 at about 8 weeks gestation by first trimester ultrasound, that comes emergency department for chief complaint of left flank pain. She states this is been developing over the past day or so. She reports urinary frequency but denies dysuria. She denies fever/chills, vomiting, abdominal pain. She denies vaginal bleeding or discharge. She denies history of kidney stones. She has had an appendectomy and 2 C-sections. She denies medical history otherwise. TRAVEL OUTSIDE OF THE [place] IN LAST 30 DAYS: No - Related Data Allergies/Adverse Reactions: No Known Allergies Allergy (Verified 11/05/18 15:31) Past Medical History - General Information source: Patient, Relative - Social History Smoking Status: Never Smoker Chew tobacco use (# tins/day): No Frequency of alcohol use: None Drug Abuse: None Lives with: Family Family History: Arthritis, CAD, COPD, CVA, DM, Hyperlipidemia, Hypertension, Malignancy. denies: Thyroid Disfunction Patient has suicidal ideation: No Patient has homicidal ideation: No Pulmonary Medical History: Reports: Hx Pneumonia Neurological Medical History: Reports: Hx Migraine Renal/ Medical History: Denies: Hx Kidney Stones, Hx Peritoneal Dialysis Past Surgical History: Reports: Hx Appendectomy, Hx Section - x2 - Immunizations Immunizations up to date: Yes Hx Diphtheria, Pertussis, Tetanus Vaccination: Yes Review of Systems - Review of Systems Constitutional: No symptoms reported EENT: No symptoms reported Cardiovascular: No symptoms reported Respiratory: No symptoms reported Gastrointestinal: See HPI Genitourinary: See HPI Female Genitourinary: See HPI Musculoskeletal: No symptoms reported Skin: No symptoms reported Hematologic/Lymphatic: No symptoms reported Neurological/Psychological: No symptoms reported Physical Exam - Vital signs Vitals: Temp Pulse Resp BP Pulse Ox 98.0 F 111 H 18 111/69 100 12/27/18 19:57 12/27/18 19:57 12/27/18 19:57 12/27/18 19:57 12/27/18 19:57 - Notes Notes: GENERAL: Alert, interacts well. No acute distress. HEAD: Normocephalic, atraumatic. EYES: Pupils equal, round, and reactive to light. Extraocular movements intact. ENT: Oral mucosa moist, tongue midline. Oropharynx unremarkable. Airway patent. NECK: Full range of motion. Supple. Trachea midline. LUNGS: Clear to auscultation bilaterally, no wheezes, rales, or rhonchi. No respiratory distress. HEART: Regular rate and rhythm. No murmur ABDOMEN: Soft, non-tender. Non-distended. EXTREMITIES: Moves all 4 extremities spontaneously. No edema, normal radial and dorsalis pedis pulses bilaterally. No cyanosis. BACK: no cervical, thoracic, lumbar midline tenderness. No saddle anesthesia, normal distal neurovascular exam. Moves all extremities in full range of motion. NEUROLOGICAL: Alert and oriented x3. Normal speech. Cranial nerves II through XII grossly intact. PSYCH: Normal affect, normal mood. SKIN: Warm, dry, normal turgor. No rashes or lesions noted. Course - Re-evaluation Re-evalutation: Patient's abdomen is completely benign, vital signs unremarkable on recheck, CBC, chemistry nonspecific. hCG is elevated as expected, RhoGam is not indicated. Ultrasound with no concerning findings with living intrauterine . Urine does show some ketones and infection. Culture placed. Given Rocephin IV and starting on Keflex. Patient able to tolerate p.o. On reevaluation patient is completely asymptomatic, no current complaints. Based on her very benign presentation I do not suspect sepsis or ureterolithiasis. Patient will be discharged with return precautions and follow-up instructions. Discussed these in detail. Patient states understanding and agreement. - Vital Signs Vital signs: Temp Pulse Resp BP Pulse Ox 98.0 F 98 18 123/74 100 12/28/18 00:52 12/28/18 00:52 12/28/18 00:52 12/28/18 00:52 12/27/18 19:57 - Laboratory Result Diagrams: 12/27/18 21:30 12/27/18 21:30 Laboratory results interpreted by me: 12/27/18 12/27/18 20:48 21:30 Beta HCG, Quant [id number] H Urine Protein 100 H Urine Ketones TRACE H Urine Blood MODERATE H Urine Urobilinogen 2.0 H Ur Leukocyte Esterase LARGE H Discharge - Discharge Clinical Impression: Left flank pain Condition: Stable Disposition: HOME, SELF-CARE Additional Instructions: The does not show any concerning abnormality at this time. Your evaluation is most consistent with a kidney infection (pyelonephritis), you have been given a dose of Rocephin, take the cephalexin antibiotics for this as prescribed to completion. Take Tylenol for pain, drink plenty fluids, and rest. Symptoms should resolve with time. Follow-up with [facility]. Return if you worsen including fever, severe worsening pain, vomiting, or any other concerning or worsening symptoms. Prescriptions: Cephalexin Monohydrate [Keflex 500 mg Capsule] 500 mg PO BID 7 Days #14 capsule
[2018-12-28 00:54] VITALS: BP 123/74
== END 2018-12-28 00:52 | disposition home or self-care (01) ==
LOC: ER 19:30
DX: O26.91 Pregnancy related conditions, unspecified, first trimester (principal); R10.9 Unspecified abdominal pain; M54.5 Low back pain; Z3A.08 8 weeks gestation of pregnancy
CPT/HCPCS: 99284; 96365; 86900; 86901; 36415; 87086; 86850; 84702; 85025; 80053; 81001; 76817; 93976; J0696; 87088; 87186

== ENCOUNTER 2019-01-14 15:50 | Emergency (ER) | payer OTHER ==
--- NOTE | 2019-01-14 16:54 | ER Document Report ---
ED Medical Screen (RME) - General Chief Complaint: Chest Pain Stated Complaint: CHEST/BACK PAIN Time Seen by Provider: 01/14/19 16:51 Primary Care Provider: AGNES LANDRUM MD [Primary Care Provider] - Follow up as needed Mode of Arrival: Wheelchair Information source: Patient Notes: 28-year-old female presents to ED for complaint of chest and back pain. She st ates is on the left side of the chest goes through to the left side of her back. She states it started about 1 some this afternoon. She is alert oriented respirations regular nonlabored. She denies any nausea vomiting or diarrhea. She states she does have some shortness of breath no cough or congestion. Denies any fevers. She denies smoking drinking or using any illicit drugs. She states last menstrual period was October 29 and she is almost 3 months . I have greeted and performed a rapid initial assessment of this patient. A comprehensive ED assessment and evaluation of the patient, analysis of test results and completion of medical decision making process will be conducted by an additional ED providers. TRAVEL OUTSIDE OF THE [place] IN LAST 30 DAYS: No - Related Data Allergies/Adverse Reactions: No Known Allergies Allergy (Verified 11/05/18 15:31) Past Medical History - Social History Frequency of alcohol use: None Drug Abuse: None Pulmonary Medical History: Reports: Hx Pneumonia Neurological Medical History: Reports: Hx Migraine Renal/ Medical History: Denies: Hx Kidney Stones, Hx Peritoneal Dialysis Past Surgical History: Reports: Hx Appendectomy, Hx Section - x2 - Immunizations Immunizations up to date: Yes Hx Diphtheria, Pertussis, Tetanus Vaccination: Yes Physical Exam - Vital signs Vitals: Temp Pulse Resp BP Pulse Ox 97.4 F 75 18 111/68 100 01/14/19 16:14 01/14/19 16:14 01/14/19 16:14 01/14/19 16:14 01/14/19 16:14 Course - Vital Signs Vital signs: Temp Pulse Resp BP Pulse Ox 97.4 F 75 18 111/68 100 01/14/19 16:14 01/14/19 16:14 01/14/19 16:14 01/14/19 16:14 01/14/19 16:14 Doctor's Discharge - Discharge Referrals: AGNES LANDRUM MD [Primary Care Provider] - Follow up as needed
--- NOTE | 2019-01-14 18:12 | RADIOLOGY REPORT (SQ) ---
EXAM DESCRIPTION: CHEST 2 VIEWS COMPLETED DATE/TIME: 01/14/2019 6:04 pm REASON FOR STUDY: chest pain 3 months COMPARISON: None. EXAM PARAMETERS: NUMBER OF VIEWS: two views TECHNIQUE: Digital Frontal and Lateral radiographic views of the chest acquired. RADIATION DOSE: NA LIMITATIONS: none FINDINGS: LUNGS AND PLEURA: No opacities, masses or pneumothorax. No pleural effusion. MEDIASTINUM AND HILAR STRUCTURES: No masses or contour abnormalities. HEART AND VASCULAR STRUCTURES: Heart normal size. No evidence for failure. BONES: No acute findings. HARDWARE: None in the chest. OTHER: No other significant finding. IMPRESSION: NO ACUTE RADIOGRAPHIC FINDING IN THE CHEST. TECHNICAL DOCUMENTATION: JOB ID: [id number] [employer]- All Rights Reserved Reading location - IP/workstation name: [email or web address]
[2019-01-14 18:42] LABS: APPEARANCE,URINE CLEAR; BILIRUBIN,URINE NEGATIVE (NEGATIVE); COLOR,URINE STRAW; GLUCOSE, URINE NEGATIVE (NEGATIVE); KETONES,URINE NEGATIVE (NEGATIVE); PROTEIN,URINE NEGATIVE (NEGATIVE); URINE SPECIFIC GRAVITY 1.009; UROBILINOGEN,URINE NEGATIVE mg/dL (<2.0)
--- NOTE | 2019-01-14 22:50 | ER Document Report ---
HPI - HPI Time Seen by Provider: 01/14/19 16:51 Pain Level: 5 Notes: Patient is an otherwise healthy 28-year-old female presenting to the emergency department with chief complaint of chest pain to left side of her chest wall that is been going on for over a year intermittently. She also reports back pain in between her shoulder blades that started today. She currently denies any pain. She reports the pain is worse with moving or coughing. She reports when she has the chest pain it feels like a sharp stabbing pain. She also states she is approximately 3 months . She denies any past medical history, does not take any medications daily and has had a twice and an appendectomy. Patient reports she has seen Dr. Landrum for her chest pain approximately 1 year ago. - CARDIOVASCULAR Cardiovascular: REPORTS: Chest pain - REPRODUCTIVE LMP: 10/29/18 Reproductive: REPORTS: :. DENIES: Abnormal bleeding / discharge Past Medical History - General Information source: Patient - Social History Smoking Status: Never Smoker Frequency of alcohol use: None Drug Abuse: None Family History: Arthritis, CAD, COPD, CVA, DM, Hyperlipidemia, Hypertension, Malignancy. denies: Thyroid Disfunction Patient has suicidal ideation: No Patient has homicidal ideation: No Pulmonary Medical History: Reports: Hx Pneumonia Neurological Medical History: Reports: Hx Migraine Renal/ Medical History: Denies: Hx Kidney Stones, Hx Peritoneal Dialysis Past Surgical History: Reports: Hx Appendectomy, Hx Section - x2 - Immunizations Immunizations up to date: Yes Hx Diphtheria, Pertussis, Tetanus Vaccination: Yes Vertical Provider Document - CONSTITUTIONAL Notes: PHYSICAL EXAMINATION: GENERAL: Well-appearing, well-nourished and in no acute distress. HEAD: Atraumatic, normocephalic. EYES: Pupils equal round and reactive to light, extraocular movements intact, conjunctiva are normal. ENT: Nares patent, oropharynx clear without exudates. Moist mucous membranes. NECK: Normal range of motion, supple without lymphadenopathy LUNGS: Breath sounds clear to auscultation bilaterally and equal. No wheezes rales or rhonchi. HEART: Regular rate and rhythm without murmurs ABDOMEN: Soft, nontender, nondistended abdomen. No guarding, no rebound. No masses appreciated. Female : deferred Musculoskeletal: Normal range of motion, no pitting or edema. No cyanosis. Reproducible pain with palpation to the left chest wall. NEUROLOGICAL: Cranial nerves grossly intact. Normal speech, normal gait. Normal sensory, motor exams PSYCH: Normal mood, normal affect. SKIN: Warm, Dry, normal turgor, no rashes or lesions noted. - INFECTION CONTROL TRAVEL OUTSIDE OF THE [place] IN LAST 30 DAYS: No Course - Re-evaluation Re-evalutation: Work-up today has been unremarkable as outlined below. Nursing staff and labs have been unable to obtain blood from this patient after greater than 6 attempts. I actually do not feel blood work is indicated at this time as she has a heart score of 0 and I do not feel her chest pain is due to ACS as it is been intermittent over the last year. Patient is as well recommend that she takes Tylenol for any pain. 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 To the ER if worsening. Laboratory 01/14/19 17:28 Urine Color STRAW Urine Appearance CLEAR Urine pH 8.0 Ur Specific Staley 1.009 Urine Protein NEGATIVE Urine Glucose (UA) NEGATIVE Urine Ketones NEGATIVE Urine Blood NEGATIVE Urine Nitrite (Reflex) NEGATIVE Urine Bilirubin NEGATIVE Urine Urobilinogen NEGATIVE Leukocyte Esterase Rfl SMALL H Urine RBC (Auto) 1 Urine Bacteria (Auto) TRACE Urine WBC (Reflex) 4 Squamous Epi Cells Auto 5 Urine Mucus (Auto) RARE Urine Ascorbic Acid NEGATIVE Chest X-Ray 01/14/19 16:54 IMPRESSION: NO ACUTE RADIOGRAPHIC FINDING IN THE CHEST. - Vital Signs Vital signs: Temp Pulse Resp BP Pulse Ox 97.4 F 75 16 121/83 100 01/14/19 16:14 01/14/19 16:14 01/14/19 22:01 01/14/19 22:01 01/14/19 22:01 - Laboratory Laboratory results interpreted by me: 01/14/19 17:28 Leukocyte Esterase Rfl SMALL H Discharge - Discharge Clinical Impression: Back pain Qualifiers: Back pain location: thoracic back pain Chronicity: acute Back pain laterality: bilateral Qualified Code(s): M54.6 - Pain in thoracic spine Chest pain Qualifiers: Chest pain type: unspecified Qualified Code(s): R07.9 - Chest pain, unspecified Condition: Stable Disposition: HOME, SELF-CARE Additional Instructions: Chest Wall Pain Your chest pain has been diagnosed as coming from the chest wall. This is often caused by straining the muscles or joints in the chest during physical activity, direct trauma, coughing, or vigorous vomiting. Persons with arthritis are especially prone to this type of pain, due to inflammation of the cartilage joints near the breast bone. Occasionally, no cause can be found. Rest from strenuous physical activity. This kind of chest pain is usually made worse by movement of the chest. Depending on the symptoms, we may prescribe medicine for pain, muscle relaxation, and antiinflammatory effects. If the pain is new, and seems to be due to muscle strain, cold packs can help. Otherwise, apply gentle warmth to the painful area for 15 minutes every hour or two. You should contact the doctor immediately if things change. Further evaluation is needed if you develop a fever or cough, if the nature of the pain changes, or if you become short of breath. Is important to follow-up with your primary care provider regarding today's visit. Your chest x-ray and EKG were normal. Please consult Dr. Landrum for an appointment and discuss with him the chronic chest pain so that he can decide if he wants to refer you to a child welfare director. Please return to the emergency department with any new or worsening symptoms. In the meantime please take Tylenol as needed for pain. Forms: Return to Work Referrals: AGNES LANDRUM MD [Primary Care Provider] - Follow up as needed
[2019-01-14 23:47] VITALS: BP 119/71
--- NOTE | 2019-01-16 00:31 | EKG REPORT ---
SEVERITY:- NORMAL ECG - SINUS RHYTHM : Confirmed by: Yeny Jett 16-Jan-2019 00:30:50
== END 2019-01-14 23:50 | disposition home or self-care (01) ==
LOC: ER 15:50
DX: O26.891 Other specified pregnancy related conditions, first trimester (principal); R07.89 Other chest pain; O99.89 Other specified diseases and conditions complicating pregnancy, childbirth and the puerperium; M54.6 Pain in thoracic spine; Z3A.10 10 weeks gestation of pregnancy
CPT/HCPCS: 71046; 81001; 87086; 93005; 93010; 99285

== ENCOUNTER 2019-06-25 22:12 | Emergency (ER) | payer OTHER ==
--- NOTE | 2019-06-25 23:12 | ER Document Report ---
ED General - General Chief Complaint: Dizziness Stated Complaint: DIZZINESS,CHEST PAINS Time Seen by Provider: 06/25/19 23:00 Primary Care Provider: AGNES LANDRUM MD [Primary Care Provider] - Follow up as needed Notes: Patient is a 28-year-old female that comes emergency department for chief complaint of pain in the mid to lower chest. She states she started feeling earlier today, she also reports nausea with the discomfort, she states it resolved. She states however at 10 PM she started feeling again along with nausea, she got up and felt lightheaded and dizzy, at that point her significant other brought her to the emergency department. She denies vomiting, difficulty breathing, headache, fever, cough, abdominal pain. She is a G3, P2 at 34 weeks gestation. She is feeling the baby move. She denies lower abdominal pain, vaginal bleeding, flank pain. She is currently on Keflex and Flagyl for a r ecent kidney infection and trichomonas. Patient denies recent travel, swelling in her legs, smoking, history of blood clot, or family history of early cardiac disease. She denies any daily medications otherwise except vitamins, only other past medical history reported is appendectomy and C-sections. TRAVEL OUTSIDE OF THE [place] IN LAST 30 DAYS: No - Related Data Allergies/Adverse Reactions: No Known Allergies Allergy (Verified 11/05/18 15:31) Home Medications: vitamins, keflex( for kidney infection), pcn (trich) Past Medical History - General Information source: Patient - Social History Smoking Status: Never Smoker Frequency of alcohol use: None Drug Abuse: None Lives with: Family Family History: Arthritis, CAD, COPD, CVA, DM, Hyperlipidemia, Hypertension, Malignancy. denies: Thyroid Disfunction Patient has suicidal ideation: No Patient has homicidal ideation: No Pulmonary Medical History: Reports: Hx Pneumonia Neurological Medical History: Reports: Hx Migraine Renal/ Medical History: Denies: Hx Kidney Stones, Hx Peritoneal Dialysis Past Surgical History: Reports: Hx Appendectomy, Hx Section - x2 - Immunizations Immunizations up to date: Yes Hx Diphtheria, Pertussis, Tetanus Vaccination: Yes Review of Systems - Review of Systems Constitutional: See HPI EENT: No symptoms reported Cardiovascular: See HPI Respiratory: See HPI Gastrointestinal: See HPI Genitourinary: No symptoms reported Female Genitourinary: See HPI Musculoskeletal: No symptoms reported Skin: No symptoms reported Hematologic/Lymphatic: No symptoms reported Neurological/Psychological: No symptoms reported Physical Exam - Vital signs Vitals: Temp Pulse Resp BP Pulse Ox 98.7 F 100 16 117/80 97 06/25/19 22:25 06/25/19 22:25 06/25/19 22:25 06/25/19 22:25 06/25/19 22:25 - Notes Notes: GENERAL: Alert, interacts well. No acute distress. Talkative and well-appearing HEAD: Normocephalic, atraumatic. EYES: Pupils equal, round, and reactive to light. Extraocular movements intact. ENT: Oral mucosa moist, tongue midline. Oropharynx unremarkable. Airway patent. LUNGS: Clear to auscultation bilaterally, no wheezes, rales, or rhonchi. No respiratory distress. HEART: Regular rate and rhythm. No murmur ABDOMEN: Gravid abdomen, soft, nontender, bowel sounds present. GENITOURINARY: Deferred EXTREMITIES: Moves all 4 extremities spontaneously. No edema, normal radial and dorsalis pedis pulses bilaterally. No cyanosis. BACK: no cervical, thoracic, lumbar midline tenderness. No saddle anesthesia, normal distal neurovascular exam. Moves all extremities in full range of motion. NEUROLOGICAL: Alert and oriented x3. Normal speech. Cranial nerves II through XII grossly intact. PSYCH: Normal affect, normal mood. SKIN: Warm, dry, normal turgor. No rashes or lesions noted. Course - Re-evaluation Re-evalutation: Patient is still complaining of some nausea and discomfort on my exam, she was given a GI cocktail and symptoms completely resolved. She was given IV fluids as well. Afterwards on standing she has no dizziness. Work-up had been initiated in triage, I did review this including CBC which shows microcytic anemia but is otherwise unremarkable, unremarkable chemistry, unremarkable lipase, negative troponin. EKG nonspecific but not specifically ischemic. She is not tachycardic on my exam. She has no lower extremity swelling or risk f actors other than . Chest x-ray is negative. Based on her resolution of symptoms, suspected GI symptoms to begin with, negative work-up, overall evaluation I do have a low suspicion of pulmonary embolism or any cardiac etiology of her symptoms. Patient asymptomatic and states she is ready to go home. She will be provided with symptom management, discussed primary care follow-up and return precautions in detail. Patient states understanding and agreement. Stable and well-appearing at time of discharge. - Vital Signs Vital signs: Temp Pulse Resp BP Pulse Ox 98.4 F 100 25 H 107/58 L 99 06/26/19 01:10 06/25/19 22:25 06/26/19 00:52 06/26/19 00:52 06/26/19 00:52 - Laboratory Result Diagrams: 06/25/19 23:01 06/25/19 23:01 Laboratory results interpreted by me: 06/25/19 06/25/19 06/25/19 23:01 23:01 23:01 RBC 3.67 L Hgb 10.2 L Hct 29.1 L MCV 79 L Sodium 133.0 L Anion Gap 4 L BUN 5 L Alkaline Phosphatase 128 H Total Protein 6.1 L Albumin 3.1 L Urine Ketones TRACE H - EKG Interpretation by Me Additional EKG results interpreted by me: EKG shows sinus rhythm at a rate of 79, QTC of 376, borderline axis, flattened T waves inferiorly, borderline inverted T wave in lead V2 but no T wave inversions or ST segment changes in consecutive leads. Discharge - Discharge Clinical Impression: Nausea, Dizziness Chest pain Qualifiers: Chest pain type: unspecified Qualified Code(s): R07.9 - Chest pain, unspecified Condition: Stable Disposition: HOME, SELF-CARE Additional Instructions: Your work-up does show some anemia, your hemoglobin is 10.2 today, your remaining work-up is reassuring. Your overall symptoms and response to treatment are most suggestive that this is from your upper gastrointestinal tract. 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 Return if you worsen including severe worsening pain, vomiting, fever, passing o ut, black stools, or any other concerning or worsening symptoms. Prescriptions: Famotidine [Pepcid 20 mg Tablet] 20 mg PO BID PRN #14 tablet PRN Reason: Metoclopramide HCl [Reglan] 5 mg PO ASDIR PRN #30 tablet PRN Reason: Referrals: GANES LANDRUM MD [Primary Care Provider] - Follow up as needed
[2019-06-25 23:24] LABS: APPEARANCE,URINE CLEAR; BILIRUBIN,URINE NEGATIVE (NEGATIVE); COLOR,URINE YELLOW; GLUCOSE, URINE NEGATIVE (NEGATIVE); KETONES,URINE TRACE mg/dL (NEGATIVE); LEUKOCYTE ESTERASE,URINE NEGATIVE (NEGATIVE); NITRITE,URINE NEGATIVE (NEGATIVE); PROTEIN,URINE NEGATIVE (NEGATIVE); URINE SPECIFIC GRAVITY 1.006; UROBILINOGEN,URINE NEGATIVE mg/dL (<2.0)
[2019-06-25 23:26] LABS: ABSOLUTE LYMPHOCYTES (AUTO) 2.1 10^3/uL (0.5-4.7); HEMOGLOBIN 10.2 g/dL (12.0-15.5); RED CELL DISTRIBUTION WIDTH 13.7 % (11.5-14.0); TOTAL CELLS COUNTED % (AUTO) 100 %; WHITE BLOOD COUNT 6.6 10^3/uL (4.0-10.5)
[2019-06-25] MEDS ORDERED: NORMAL SALINE 1000 ML 1,000 ML IV ONE (23:31)
[2019-06-25] MEDS ORDERED: MAG HYDROX/AL HYDROX/SIMETH SUSP 30 ML UDCUP PO ONE (23:31)
[2019-06-25] MEDS ORDERED: METOCLOPRAMIDE HCL ORAL SOLN 10 MG/10 ML UDCUP PO ONE (23:31)
[2019-06-25] MEDS ORDERED: LIDOCAINE 2% VISCOUS SOLN 15 ML UDCUP PO ONE (23:31)
[2019-06-25 23:35] LABS: ABSOLUTE BASOPHILS # (AUTO) 0.1 10^3/uL (0.0-0.2); ABSOLUTE MONOCYTES (AUTO) 0.5 10^3/uL (0.1-1.4); ABSOLUTE NEUT (AUTO) 3.9 10^3/uL (1.7-8.2); BASOPHILS % (AUTO) 0.9 % (0-2); EOSINOPHILS % (AUTO) 0.5 % (0-6); HEMATOCRIT 29.1 % (36.0-47.0); LYMPHOCYTES % (AUTO) 31.6 % (13-45); MEAN CORPUSCULAR HEMOGLOBIN 27.9 pg (27.0-33.4); MEAN CORPUSCULAR HGB CONC 35.2 g/dL (32.0-36.0); MEAN CORPUSCULAR VOLUME 79 fl (80-97); MONOCYTES % (AUTO) 7.5 % (3-13); PLATELET COUNT 301 10^3/uL (150-450); RED BLOOD COUNT 3.67 10^6/uL (3.72-5.28); SEGMENTED NEUTROPHILS % (AUTO) 59.5 % (42-78)
[2019-06-25 23:39] LABS: ALBUMIN 3.1 g/dL (3.5-5.0); ALKALINE PHOSPHATASE 128 U/L (38-126); ASPARTATE AMINO TRANSFERASE 17 U/L (14-36); BILIRUBIN,DIRECT 0.1 mg/dL (0.0-0.4); BILIRUBIN,TOTAL 0.7 mg/dL (0.2-1.3); BLOOD UREA NITROGEN 5 mg/dL (7-20); CALCIUM 8.8 mg/dL (8.4-10.2); CARBON DIOXIDE 24 mmol/L (22-30); CHLORIDE 105 mmol/L (98-107); CREATINE KINASE 38 U/L (30-135); GLUCOSE 91 mg/dL (75-110); POTASSIUM 3.6 mmol/L (3.6-5.0); TOTAL PROTEIN 6.1 g/dL (6.3-8.2)
[2019-06-25 23:46] LABS: ANION GAP 4 (5-19)
[2019-06-25 23:52] LABS: CREATINE KINASE MB < 0.22 ng/mL (<4.55); TROPONIN I < 0.012 ng/mL
--- NOTE | 2019-06-26 00:13 | RADIOLOGY REPORT (SQ) ---
CLINICAL INDICATION: chest pain (shield; patient ). TECHNIQUE: A single portable AP view was obtained of the chest at 2347 hours. June 25, 2019 COMPARISON: January 14, 2019. FINDINGS: The cardiomediastinal silhouette is normal. The lungs are grossly clear. No evidence of effusion or pneumothorax. The visualized bones are unremarkable. IMPRESSION: No evidence of active intrathoracic disease.
[2019-06-26 00:55] VITALS: BP 107/58
--- NOTE | 2019-06-26 09:01 | EKG REPORT ---
SEVERITY:- BORDERLINE ECG - SINUS RHYTHM BORDERLINE T ABNORMALITIES, ANTERIOR LEADS, NEW CHANGES SINCE 01/14/19 EKG, CLINICAL CORRELATION NEED ED. : Confirmed by: Noman Briseno MD 26-Jun-2019 09:00:50
== END 2019-06-26 01:10 | disposition home or self-care (01) ==
LOC: ER 22:12
DX: R42 Dizziness and giddiness (principal); R07.9 Chest pain, unspecified; R11.0 Nausea; Z79.899 Other long term (current) drug therapy
CPT/HCPCS: 93005; 99284; 96360; 36415; 82553; 82550; 83690; 85025; 80053; 81001; 84484; 71045; 93010; J3490; J7030

== ENCOUNTER 2019-07-29 04:50 | Inpatient (IN) | payer OTHER ==
[2019-07-25 10:43] LABS: APPEARANCE,URINE SLIGHTLY-CLOUDY; BILIRUBIN,URINE NEGATIVE (NEGATIVE); COLOR,URINE YELLOW; GLUCOSE, URINE NEGATIVE (NEGATIVE); KETONES,URINE NEGATIVE (NEGATIVE); LEUKOCYTE ESTERASE,URINE MODERATE (NEGATIVE); NITRITE,URINE NEGATIVE (NEGATIVE); PROTEIN,URINE NEGATIVE (NEGATIVE); URINE SPECIFIC GRAVITY 1.006; UROBILINOGEN,URINE NEGATIVE mg/dL (<2.0)
[2019-07-25 10:48] LABS: ABSOLUTE BASOPHILS # (AUTO) 0.1 10^3/uL (0.0-0.2); ABSOLUTE LYMPHOCYTES (AUTO) 2.7 10^3/uL (0.5-4.7); ABSOLUTE MONOCYTES (AUTO) 0.5 10^3/uL (0.1-1.4); BASOPHILS % (AUTO) 1.1 % (0-2); EOSINOPHILS % (AUTO) 0.4 % (0-6); HEMATOCRIT 30.5 % (36.0-47.0); HEMOGLOBIN 10.3 g/dL (12.0-15.5); LYMPHOCYTES % (AUTO) 43.3 % (13-45); MEAN CORPUSCULAR HEMOGLOBIN 25.8 pg (27.0-33.4); MEAN CORPUSCULAR HGB CONC 33.9 g/dL (32.0-36.0); MEAN CORPUSCULAR VOLUME 76 fl (80-97); MONOCYTES % (AUTO) 7.7 % (3-13); PLATELET COUNT 290 10^3/uL (150-450); RED BLOOD COUNT 4.01 10^6/uL (3.72-5.28); RED CELL DISTRIBUTION WIDTH 15.1 % (11.5-14.0); SEGMENTED NEUTROPHILS % (AUTO) 47.5 % (42-78); TOTAL CELLS COUNTED % (AUTO) 100 %; WHITE BLOOD COUNT 6.2 10^3/uL (4.0-10.5)
[2019-07-25 10:54] LABS: URINE AMPHETAMINES SCREEN NEGATIVE; URINE BARBITURATES SCREEN NEGATIVE; URINE BENZODIAZEPINES SCREEN NEGATIVE; URINE COCAINE SCREEN NEGATIVE; URINE MARIJUANA (THC) SCREEN NEGATIVE; URINE METHADONE SCREEN NEGATIVE; URINE PHENCYCLIDINE SCREEN NEGATIVE
[2019-07-29] MEDS ORDERED: CEFAZOLIN SODIUM 2 GM in DEXTROSE 5%-WATER 100 ML IV PRN (05:00)
[2019-07-29] MEDS ORDERED: LACTATED RINGERS 1000 ML IV ONE (05:45)
[2019-07-29] MEDS ORDERED: RINGERS SOLUTION,LACTATED 1,000 ML IV ONE (06:45)
[2019-07-29] MEDS ORDERED: CEFAZOLIN 1 GM/D5W RTU 2 GM/100 ML RTUPB IV ONE (07:24)
[2019-07-29] MEDS ORDERED: OXYTOCIN 10 UNIT/ML VIAL ONE (07:28)
[2019-07-29] MEDS ORDERED: OXYTOCIN/NORMAL SALINE 20 UNIT/1,000 ML RTUINJ ONE (07:28)
[2019-07-29] MEDS ORDERED: MORPHINE SULFATE 10 MG/ML INJ ONE (07:28)
[2019-07-29] MEDS ORDERED: MIDAZOLAM 2 MG/2 ML INJ ONE (07:28)
[2019-07-29] MEDS ORDERED: ONDANSETRON HCL INJ/PF 4 MG/2 ML SDV ONE (07:29)
[2019-07-29] MEDS ORDERED: FENTANYL CITRATE INJ/PF 100 MCG/2 ML AMPUL IV PRN ×3 (08:20)
[2019-07-29] MEDS ORDERED: MORPHINE SULFATE 10 MG/ML INJ IV PRN (08:20)
[2019-07-29] MEDS ORDERED: ONDANSETRON HCL INJ/PF 4 MG/2 ML SDV IV PRN (08:20)
[2019-07-29] MEDS ORDERED: MEPERIDINE HCL/PF INJ 25 MG/1 ML DISP.SYRIN IV PRN (08:20)
[2019-07-29] MEDS ORDERED: DIPHENHYDRAMINE HCL 50 MG/ML VIAL IV PRN (08:20)
[2019-07-29] MEDS ORDERED: PROMETHAZINE HCL INJ 25 MG/1 ML VIAL IV PRN ×3 (08:20→08:23)
[2019-07-29] MEDS ORDERED: DIPH/PERTUSS(ACELL)/TETANUS VAC/PF 0.5 ML SYR (>=10YO) IM PRN (08:23)
[2019-07-29] MEDS ORDERED: ACETAMINOPHEN 325 MG TABLET PO PRN (08:23)
[2019-07-29] MEDS ORDERED: SIMETHICONE 80 MG TAB.CHEW PO PRN (08:23)
[2019-07-29] MEDS ORDERED: MEASLES,MUMPS&RUBELLA VACC/PF 0.5 ML VIAL SUBCUT PRN (08:23)
[2019-07-29] MEDS ORDERED: OXYTOCIN/NORMAL SALINE 20 UNIT/1,000 ML RTUINJ IV PRN (08:23)
--- NOTE | 2019-07-29 08:26 | PDOC DELIVERY SUMMARY ---
Delivery Summary - Maternal Hx : III Hx # Term Pregnancies: 3 DAYAN: 08/05/19 Risk Factors: Previous Ruptured Membranes: AROM Fluids: Clear - Delivery Labor: Not In Labor Presentation: Vertex Heart Rate Monitoring: Externally Uterine Contraction Monitoring: External Support Person Present: Yes : Scheduled Placenta: Within Normal Limits Nuchal Cord: No - Medications Type of Anesthesia:: Spinal
--- NOTE | 2019-07-29 08:28 | Operative Report ---
Operative Report DATE OF SURGERY: 07/29/19 PREOPERATIVE DIAGNOSIS: IUP at term prior section desire for steriliza tion POSTOPERATIVE DIAGNOSIS: Same OPERATION: Repeat low transverse section and a bilateral tubal ligation SURGEON: KOFFI WILKERSON ANESTHESIA: Spinal TISSUE REMOVED OR ALTERED: Placenta ESTIMATED BLOOD LOSS: 900 cc PROCEDURE: The patient was taken to the operating room where spinal anesthesia was obtained and found to be adequate. She was then prepped and draped in the normal sterile fashion and placed in the dorsal supine position with a leftward tilt. A Pfannenstiel skin incision was then made and carried through to the underlying layers of the fascia with the scalpel. The fascia was incised in the midline and the incision extended laterally with the Perdomo scissors. The superior aspect of the fascial incision was then grasped with Kisha clamps elevated and the underlying rectus muscles dissected off bluntly. Attention was then turned to the inferior aspect of the fascial incision which in a similar fashion was grasped, tented up with Beau clamps, and the rectus muscles dissected off bluntly. The rectus muscles were then in the midline and the peritoneum at the amount identified and entered bluntly. The peritoneal incision was then extended superiorly and inferiorly with good visualization of the bladder. [The bladder blade was inserted and the vesicouterine peritoneum identified grasped with Stateless pickups and entered sharply with the Metzenbaum scissors. His incision was then extended laterally with the Metzenbaum scissors and a bladder flap created digitally. The bladder blade was then reinserted and the lower uterine segment incised in a transverse fashion with the scalpel. The uterine incision was then extended bluntly. The bladder blade was removed and the infant's head was delivered from cephalic presentation atraumatically. The nose and mouth were suctioned and the cord doubly clamped and cut. And the was handed off to waiting pediatricians. The placenta was then delivered manully and the uterus exteriorized and cleared of all clots and debris. The uterine incision was then repaired with 1-0 Vicryl in a running locked fashion. A second layer of the same suture was used to obtain hemostasis via imbrication of the initial layer. Filshie clip was applied to the right fallopian tube and the proximal portion with a good grasp being noted. Procedure P on the left again with good grasping noted. The uterus was returned to the patient's abdomen. The gutters were cleared of all clots and debris. All operative sites were noted to be hemostatic. The fascia was reapproximated with 0 Vicryl in a running fashion from each lateral edge to the midline. The patient tolerated the procedure well. Sponge lap needle and instrument counts are correct -2. 2 g of Ancef were given prior to skin incision. The patient was taken to the recovery area awake and in stable condition.
[2019-07-29] MEDS ORDERED: BUPIVACAINE HCL 0.5 % INJ/PF 30 ML SDV ONE (08:34)
[2019-07-29] MEDS: FENTANYL CITRATE INJ/PF 100 MCG/2 ML AMPUL ONE ×2 (09:46→09:51)
[2019-07-29] MEDS ORDERED: PHENYLEPHRINE HCL INJ/PF 10 MG/1 ML SDV ONE (10:43)
[2019-07-29] MEDS: DOCUSATE SODIUM 100 MG CAPSULE PO SCH ×2 (11:06→17:28)
[2019-07-29] MEDS: PRENATAL VITAMIN W DHA CAPSULE PO SCH (11:06)
[2019-07-29] MEDS: OXYCODONE-ACETAMINOPHEN 5-325 MG TABLET PO PRN ×2 (11:47→17:28)
[2019-07-29] MEDS ORDERED: MORPHINE SULFATE 10 MG/ML INJ IM PRN (13:08)
[2019-07-29] MEDS: KETOROLAC TROMETHAMINE INJ/PF 30 MG/1 ML SDV IV SCH ×2 (13:18→21:36)
[2019-07-30] MEDS: OXYCODONE-ACETAMINOPHEN 5-325 MG TABLET PO PRN ×4 (01:01→21:27)
[2019-07-30] MEDS ORDERED: NORMAL SALINE 1000 ML (RENAL PATIENTS) IV PRN (05:00)
[2019-07-30 05:15] LABS: HEMATOCRIT 26.9 % (36.0-47.0); HEMOGLOBIN 9.3 g/dL (12.0-15.5); MEAN CORPUSCULAR HEMOGLOBIN 25.8 pg (27.0-33.4); MEAN CORPUSCULAR HGB CONC 34.7 g/dL (32.0-36.0); MEAN CORPUSCULAR VOLUME 74 fl (80-97); PLATELET COUNT 257 10^3/uL (150-450); RED BLOOD COUNT 3.62 10^6/uL (3.72-5.28); RED CELL DISTRIBUTION WIDTH 15.7 % (11.5-14.0); WHITE BLOOD COUNT 10.6 10^3/uL (4.0-10.5)
[2019-07-30] MEDS: KETOROLAC TROMETHAMINE INJ/PF 30 MG/1 ML SDV IV SCH ×2 (05:26→13:41)
[2019-07-30] MEDS: DOCUSATE SODIUM 100 MG CAPSULE PO SCH ×2 (09:26→18:57)
[2019-07-30] MEDS: PRENATAL VITAMIN W DHA CAPSULE PO SCH (09:26)
--- NOTE | 2019-07-30 10:21 | PDOC PROGRESS REPORT ---
Subjective-OB Progress Note for:: 07/30/19 - POD #1, doing well, pt c/o Rt sided "gas' pain, B+ Rubella immune, s/p Rpt Physical Exam (OB) Vital Signs: Temp Pulse Resp BP Pulse Ox 97.7 F 75 18 104/72 99 07/30/19 07:24 07/30/19 07:24 07/30/19 07:24 07/30/19 07:24 07/30/19 07:24 Intake & Output 07/29/19 07/30/19 07/31/19 06:59 06:59 06:59 Intake Total 2675 Output Total 3660 0 Balance -985 0 - General General Appearance: Appears well, Alert In distress: None - PIH/Pre-Eclampsia DTR's: 1 + Clonus: Negative Headache: Absent Epigastric Pain: No Visual Changes: No - Dressing Removed: No Incision: Dressing, Well Approximated Closure Type: pressure - Lochia Lochia Amount: Scant < 10 ml Lochia Color: Rubra/Red - Abdomen Description: Soft, Round Hernia Present: No Fundal Description: Firm, Midline Fundal Height: u/u - u/2 - Respiratory Respiratory Status: No respiratory distress - Abdominal Distension: No distension Tenderness: Nontender - Genitourinary Genitourinary Note: voiding - Extremities Upper extremity: Normal inspection Lower extremities: Normal inspection - Psychological Associated symptoms: Normal affect, Normal mood - Skin Skin Temperature: Warm Skin Moisture: Dry Objective-Diagnostic Laboratory: 07/30/19 05:06 07/30/19 05:06 WBC 10.6 H RBC 3.62 L Hgb 9.3 L Hct 26.9 L MCV 74 L MCH 25.8 L MCHC 34.7 RDW 15.7 H Plt Count 257 Assessment and Plan(PN) - Assessment and Plan (1) Anemia Qualifiers: Anemia type: iron deficiency Is this a current diagnosis for this admission?: Yes (3) History of delivery, currently Is this a current diagnosis for this admission?: Yes Plan:: ambulation encouraged, Routine PP and Post Op orders - Time Spent with Patient Time with patient: Less than 15 minutes Medications reviewed and adjusted accordingly: Yes - Disposition Anticipated Discharge: Home Within: within 48 hours
[2019-07-30] MEDS: FERROUS SULFATE 325 MG TABLET PO SCH (11:42)
[2019-07-30] MEDS: IBUPROFEN 800 MG TABLET PO SCH ×3 (11:42→23:51)
[2019-07-31] MEDS: IBUPROFEN 800 MG TABLET PO SCH ×2 (05:05→11:01)
[2019-07-31 07:46] VITALS: BP 114/76
[2019-07-31] MEDS: FERROUS SULFATE 325 MG TABLET PO SCH (09:15)
[2019-07-31] MEDS: DOCUSATE SODIUM 100 MG CAPSULE PO SCH (09:15)
[2019-07-31] MEDS: PRENATAL VITAMIN W DHA CAPSULE PO SCH (09:15)
--- NOTE | 2019-07-31 10:24 | PDOC DISCHARGE SUMMARY ---
Impression - Admit/DC Date/PCP Admission Date/Primary Care Provider: 07/29/19 04:50 KOFFI WILKERSON MD Discharge Date: 07/31/19 - POD #2, pt doing well, s/p Rpt , desires to go home today B+, Rubella immune, breast and bottlefeeding - Discharge Diagnosis (1) Anemia Is this a current diagnosis for this admission?: Yes (2) delivery delivered Is this a current diagnosis for this admission?: Yes (3) History of delivery, currently Is this a current diagnosis for this admission?: Yes - Additional Information Resuscitation Status: Full Code Discharge Diet: As Tolerated, Regular Discharge Activity: Activity As Tolerated, No Driving, No Lifting Over 10 Pounds, Pelvic Rest Referrals: KOFFI WILKERSON MD [Primary Care Provider] - Prescriptions: Ibuprofen [Motrin 800 mg Tablet] 800 mg PO Q6 #60 tablet Oxycodone HCl/Acetaminophen [Percocet 5-325 mg Tablet] 2 tab PO Q4HP PRN #30 tablet PRN Reason: Pain Scale Of 4 Home Medications: Iron,Carb/Vit C/Vit B12/Folic [Iron 100 Plus Tablet] 1 each PO ASDIR PRN 07/25/19 Vits96/Iron Fum/Folic [ Tablet] 1 each PO ASDIR PRN 07/25/19 Ibuprofen [Motrin 800 mg Tablet] 800 mg PO Q6 #60 tablet 07/31/19 Oxycodone HCl/Acetaminophen [Percocet 5-325 mg Tablet] 2 tab PO Q4HP PRN #30 tablet 07/31/19 HPI Reason(s) for Admission: Ceasarean Section-Repeat Intrapartum Procedure(s): : Low Cervical, Transverse Results Laboratory Results: WBC 10.6 10^3/uL (4.0-10.5) H 07/30/19 05:06 RBC 3.62 10^6/uL (3.72-5.28) L 07/30/19 05:06 Hgb 9.3 g/dL (12.0-15.5) L 07/30/19 05:06 Hct 26.9 % (36.0-47.0) L 07/30/19 05:06 MCV 74 fl (80-97) L 07/30/19 05:06 MCH 25.8 pg (27.0-33.4) L 07/30/19 05:06 MCHC 34.7 g/dL (32.0-36.0) 07/30/19 05:06 RDW 15.7 % (11.5-14.0) H 07/30/19 05:06 Plt Count 257 10^3/uL (150-450) 07/30/19 05:06 Lymph % (Auto) 43.3 % (13-45) 07/25/19 09:08 [place] % (Auto) 7.7 % (3-13) 07/25/19 09:08 Eos % (Auto) 0.4 % (0-6) 07/25/19 09:08 Baso % (Auto) 1.1 % (0-2) 07/25/19 09:08 Absolute Neuts (auto) 3.0 10^3/uL (1.7-8.2) 07/25/19 09:08 Absolute Lymphs (auto) 2.7 10^3/uL (0.5-4.7) 07/25/19 09:08 Absolute Monos (auto) 0.5 10^3/uL (0.1-1.4) 07/25/19 09:08 Absolute Eos (auto) 0.0 10^3/uL (0.0-0.6) 07/25/19 09:08 Absolute Basos (auto) 0.1 10^3/uL (0.0-0.2) 07/25/19 09:08 Seg Neutrophils % 47.5 % (42-78) 07/25/19 09:08 Urine Color YELLOW 07/25/19 08:55 Urine Appearance SLIGHTLY-CLOUDY 07/25/19 08:55 Urine pH 6.0 (5.0-9.0) 07/25/19 08:55 Ur Specific [place] 1.006 07/25/19 08:55 Urine Protein NEGATIVE mg/dL (NEGATIVE) 07/25/19 08:55 Urine Glucose (UA) NEGATIVE mg/dL (NEGATIVE) 07/25/19 08:55 Urine Ketones NEGATIVE mg/dL (NEGATIVE) 07/25/19 08:55 Urine Blood NEGATIVE (NEGATIVE) 07/25/19 08:55 Urine Nitrite NEGATIVE (NEGATIVE) 07/25/19 08:55 Urine Bilirubin NEGATIVE (NEGATIVE) 07/25/19 08:55 Urine Urobilinogen NEGATIVE mg/dL (<2.0) 07/25/19 08:55 Ur Leukocyte Esterase MODERATE (NEGATIVE) H 07/25/19 08:55 Urine WBC (Auto) 4 /HPF 07/25/19 08:55 Urine RBC (Auto) 3 /HPF 07/25/19 08:55 U Hyaline Cast (Auto) 1 /LPF 07/25/19 08:55 Urine Bacteria (Auto) TRACE /HPF 07/25/19 08:55 Squamous Epi Cells Auto 2 /HPF 07/25/19 08:55 Urine Mucus (Auto) RARE /LPF 07/25/19 08:55 Urine Ascorbic Acid NEGATIVE (NEGATIVE) 07/25/19 08:55 Urine Opiates Screen NEGATIVE 07/25/19 08:55 Urine Methadone Screen NEGATIVE 07/25/19 08:55 Ur Barbiturates Screen NEGATIVE 07/25/19 08:55 Ur Phencyclidine Scrn NEGATIVE 07/25/19 08:55 Ur Amphetamines Screen NEGATIVE 07/25/19 08:55 U Benzodiazepines Scrn NEGATIVE 07/25/19 08:55 Urine Cocaine Screen NEGATIVE 07/25/19 08:55 U Marijuana (THC) Screen NEGATIVE 07/25/19 08:55 Blood Type B POSITIVE 07/28/19 08:30 Antibody Screen NEGATIVE 07/28/19 08:30 Plan Plan of Treatment: f/up with [facility] in one week Time Spent: Less than 30 Minutes
[2019-07-31] MEDS: OXYCODONE-ACETAMINOPHEN 5-325 MG TABLET PO PRN (11:01)
== END 2019-07-31 14:47 | disposition home or self-care (01) | DRG 785 ==
LOC: 2S 04:50
PROVIDERS: ADMIT Obstetrics & Gynecology Gynecology; ATTEND Obstetrics & Gynecology Gynecology
PROC: 0UB70ZZ Excision of Bilateral Fallopian Tubes, Open Approach (ICD-10-PCS; 2019-07-29)
PROC: 10D00Z1 Extraction of Products of Conception, Low, Open Approach (ICD-10-PCS; principal; 2019-07-29 07:45)
DX: O34.211 Maternal care for low transverse scar from previous cesarean delivery (principal); Z30.2 Encounter for sterilization; O99.02 Anemia complicating childbirth; D57.1 Sickle-cell disease without crisis; D50.9 Iron deficiency anemia, unspecified; Z37.0 Single live birth
CPT/HCPCS: 1961; 36415; 59025; 80307; 81001; 85025; 85027; 86850; 86900; 86901; 94799; J0690; J1885; J2250; J2270; J2370; J2405; J2590; J3010; J3490; J7060; J7120

== ENCOUNTER 2019-09-29 05:16 | Emergency (ER) | payer OTHER ==
[2019-09-29 08:01] LABS: APPEARANCE,URINE SLIGHTLY-CLOUDY; BILIRUBIN,URINE NEGATIVE (NEGATIVE); COLOR,URINE YELLOW; GLUCOSE, URINE NEGATIVE (NEGATIVE); KETONES,URINE NEGATIVE (NEGATIVE); LEUKOCYTE ESTERASE,URINE MODERATE (NEGATIVE); NITRITE,URINE NEGATIVE (NEGATIVE); PROTEIN,URINE NEGATIVE (NEGATIVE); URINE SPECIFIC GRAVITY 1.012; UROBILINOGEN,URINE NEGATIVE mg/dL (<2.0)
[2019-09-29 08:33] LABS: ABSOLUTE BASOPHILS # (AUTO) 0.1 10^3/uL (0.0-0.2); ABSOLUTE LYMPHOCYTES (AUTO) 1.3 10^3/uL (0.5-4.7); ABSOLUTE MONOCYTES (AUTO) 0.3 10^3/uL (0.1-1.4); ABSOLUTE NEUT (AUTO) 7.2 10^3/uL (1.7-8.2); BASOPHILS % (AUTO) 0.7 % (0-2); EOSINOPHILS % (AUTO) 0.1 % (0-6); HEMATOCRIT 36.8 % (36.0-47.0); HEMOGLOBIN 12.2 g/dL (12.0-15.5); LYMPHOCYTES % (AUTO) 14.4 % (13-45); MEAN CORPUSCULAR HEMOGLOBIN 24.6 pg (27.0-33.4); MEAN CORPUSCULAR VOLUME 75 fl (80-97); MONOCYTES % (AUTO) 3.7 % (3-13); PLATELET COUNT 339 10^3/uL (150-450); RED BLOOD COUNT 4.93 10^6/uL (3.72-5.28); RED CELL DISTRIBUTION WIDTH 20.9 % (11.5-14.0); SEGMENTED NEUTROPHILS % (AUTO) 81.1 % (42-78); TOTAL CELLS COUNTED % (AUTO) 100 %; WHITE BLOOD COUNT 8.8 10^3/uL (4.0-10.5)
[2019-09-29 08:50] LABS: ALBUMIN 4.5 g/dL (3.5-5.0); ALKALINE PHOSPHATASE 111 U/L (38-126); ANION GAP 7 (5-19); ASPARTATE AMINO TRANSFERASE 23 U/L (14-36); BILIRUBIN,TOTAL 0.6 mg/dL (0.2-1.3); BLOOD UREA NITROGEN 14 mg/dL (7-20); CALCIUM 9.6 mg/dL (8.4-10.2); CARBON DIOXIDE 27 mmol/L (22-30); CHLORIDE 104 mmol/L (98-107); GLUCOSE 92 mg/dL (75-110); POTASSIUM 4.5 mmol/L (3.6-5.0); TOTAL PROTEIN 7.5 g/dL (6.3-8.2)
[2019-09-29] MEDS ORDERED: NORMAL SALINE 1000 ML 1,000 ML IV ONE (09:07)
[2019-09-29] MEDS ORDERED: ONDANSETRON HCL INJ/PF 4 MG/2 ML SDV IV ONE (09:07)
[2019-09-29] MEDS ORDERED: KETOROLAC TROMETHAMINE INJ/PF 30 MG/1 ML SDV IV ONE (09:07)
--- NOTE | 2019-09-29 09:13 | ER Document Report ---
ED General - General Chief Complaint: Flank Pain Stated Complaint: LEFT SIDED FLANK PAIN,FREQUENT URINATION,NAUSEA Time Seen by Provider: 09/29/19 08:09 Primary Care Provider: KOFFI WILKERSON MD [Primary Care Provider] - Follow up as needed TRAVEL OUTSIDE OF THE [place] IN LAST 30 DAYS: No - HPI Notes: Chief complaint: Left flank pain, nausea/vomiting HPI: 28-year-old female who is about 5 weeks presents with left flank pain which awakened her from sleep early this morning and was at that time rated about 8/10 intensity with associated nausea and multiple episodes of vomiting. Presently rating her pain 5/10. Patient says she is never had a kidney stone in the past that she is aware of but says there are family members with this condition. She denies dysuria or gross hematuria. She denies fever chills. She reports no allergies. Prior abdominal surgeries have included and appendectomy. - Related Data Allergies/Adverse Reactions: No Known Allergies Allergy (Verified 11/05/18 15:31) Past Medical History - General Information source: Patient, [facility] Records - Social History Smoking Status: Unknown if Ever Smoked Chew tobacco use (# tins/day): No Frequency of alcohol use: None Drug Abuse: None Family History: Arthritis, CAD, COPD, CVA, DM, Hyperlipidemia, Hypertension, Malignancy. denies: Thyroid Disfunction - Past Medical History Cardiac Medical History: Denies: Hx Hypertension, Hx Pulmonary Embolism, Hx Heart Murmur Pulmonary Medical History: Reports: Hx Pneumonia Denies: Hx Asthma, Hx Sleep Apnea, Hx Tuberculosis Neurological Medical History: Reports: Hx Migraine. Denies: Hx Cerebrovascular Accident, Hx Seizures Endocrine Medical History: Denies: Hx Hyperthyroidism, Hx Hypothyroidism Renal/ Medical History: Denies: Hx Kidney Stones, Hx Ovarian Cysts, Hx Pe ritoneal Dialysis, Hx Pelvic Inflammatory Disease Malignancy Medical History: Denies: Hx Breast Cancer, Hx Cervical Cancer, Hx Ovarian Cancer GI Medical History: Denies: Hx Gastroesophageal Reflux Disease, Hx Hiatal Hernia, Hx Ulcer Musculoskeletal Medical History: Denies Hx Fibromyalgia Psychiatric Medical History: Denies: Hx Bipolar Disorder, Hx Depression, Hx Post Traumatic Stress Disorder, Hx Schizophrenia Traumatic Medical History: Denies: Hx Fractures Infectious Medical History: Denies: Hx HIV Past Surgical History: Reports: Hx Appendectomy, Hx Section - x3 - Immunizations Immunizations up to date: Yes Hx Diphtheria, Pertussis, Tetanus Vaccination: Yes Review of Systems - Review of Systems Notes: Constitutional: Negative for fever. HENT: Negative for sore throat. Eyes: Negative for visual changes. Cardiovascular: Negative for chest pain. Respiratory: Negative for shortness of breath. Gastrointestinal: As per HPI. Genitourinary: As per HPI. Musculoskeletal: As per HPI. Skin: Negative for rash. Neurological: Negative for headaches, weakness or numbness. 10 point ROS negative except as marked above and in HPI. Physical Exam - Vital signs Vitals: Temp 98.7 F 09/29/19 05:31 - Notes Notes: GENERAL: Female patient of approximately stated age appearing in moderate discomfort and slightly restless holding the left flank area. SKIN: Good turgor no rashes. HEAD: Normocephalic atraumatic. EYES: PERRLA. EOMI. Conjunctivae and sclerae clear. EARS: CANALS AND TMS CLEAR. NOSE: CLEAR. MOUTH: Moist mucosa. Good dentition. No stridor or edema. No drooling. NECK: Supple. No masses or thyromegaly. No adenopathy. Carotids 2+ without bruits. No JVD. BACK: Symmetrical without tenderness. CHEST: Respirations unlabored. Breath sounds clear and symmetrical. HEART: Regular rhythm. No murmur gallop or rub. ABDOMEN: Soft nontender without masses, organomegaly or rebound. Bowel sounds normally active. No bruits. GENITALIA: Deferred. EXTREMITIES: No edema. No calf tenderness. Cap refill less than 1.5 seconds. Dorsalis pedis and posterior tibial pulses 3+ and symmetrical. NEUROLOGICAL: GCS 15. Alert and oriented x3. Normal gait. Fluent speech. Cranial nerves II through XII intact. Sensorimotor and cerebellar normal. Normal tone. PSYCHIATRIC: Appropriate affect. Course - Re-evaluation Re-evalutation: 09/29/19 12:36 Patient's initial presentation suggested ureterolithiasis. This was not demonstrated however on CT stone study. Which she did show surprisingly was presence of multiple gallstones. I went back and reexamined her and she absolutely has no tenderness on the right side or epigastric area. She has no fever. Her white count and LFTs are fine. Her lipase is normal. She got relief with 1 dose of Toradol and has been pain-free since then. She did have very small amount of blood in her urine and I would wonder if she perhaps passed a small stone prior to arrival here. She has only 2 white cells with a lot of squamous epithelial present in the urine specimen and I do not think clinically she has a UTI. I will send her out with Zofran and Toradol orally and asked her to push p.o. fluids and follow-up with her primary care physician. Findings, clinical impression and plan of treatment have been discussed with patient/family. Understanding of current findings and recommendations has been acknowledged by them and there is agreement regarding disposition and follow-up. - Vital Signs Vital signs: Temp Pulse Resp BP Pulse Ox 98.7 F 67 18 120/73 99 09/29/19 05:36 09/29/19 05:36 09/29/19 05:36 09/29/19 05:36 09/29/19 05:36 - Laboratory Result Diagrams: 09/29/19 08:12 09/29/19 08:12 Laboratory results interpreted by me: 09/29/19 09/29/19 05:49 08:12 MCV 75 L MCH 24.6 L RDW 20.9 H Seg Neutrophils % 81.1 H Urine Blood SMALL H Ur Leukocyte Esterase MODERATE H Discharge - Discharge Clinical Impression: Left flank pain Cholelithiasis Qualifiers: Cholelithiasis location: gallbladder Cholecystitis presence: without cholecystitis Biliary obstruction: without biliary obstruction Qualified Code(s): K80.20 - Calculus of gallbladder without cholecystitis without obstruction Condition: Stable Disposition: HOME, SELF-CARE Instructions: Gallbladder Disease ([facility]) Additional Instructions: Increase oral fluids. Take prescribed medications as needed. Follow-up with your primary care physician in the next 3 to 5 days. Return here as needed for new or worsening symptoms: Pain that is worsening or unimproved Uncontrolled vomiting High fever or shaking chills Overall worsening Prescriptions: Ketorolac Tromethamine [Toradol 10 mg Tablet] 10 mg PO Q6HP PRN 10 Days #20 tablet PRN Reason: Ondansetron [Zofran Odt 4 mg Tablet] 1 - 2 tab PO Q4H PRN #15 tab.rapdis PRN Reason: For Nausea/Vomiting Referrals: KOFFI WILKERSON MD [Primary Care Provider] - Follow up as needed
[2019-09-29 09:18] LABS: ANISOCYTOSIS 2+; HYPOCHROMASIA 1+; POLYCHROMASIA SLIGHT
[2019-09-29 09:19] LABS: PLATELET COMMENT ADEQUATE; PLATELET LARGE PRESENT; POIKILOCYTOSIS SLIGHT; TARGET CELLS SLIGHT; TEAR DROP CELLS SLIGHT; TOXIC VACUOLATION PRESENT
--- NOTE | 2019-09-29 09:59 | RADIOLOGY REPORT (SQ) ---
EXAM DESCRIPTION: CT ABD/PELVIS NO ORAL OR IV IMAGES COMPLETED DATE/TIME: 09/29/2019 9:45 am REASON FOR STUDY: left flank pain; renal stone suspected COMPARISON: 08/05/2013 TECHNIQUE: CT scan of the abdomen and pelvis performed without intravenous or oral contrast. Images reviewed with lung, soft tissue, and bone windows. Reconstructed coronal and sagittal MPR images revi ewed. All images stored on PACS. All CT scanners at this facility use dose modulation, iterative reconstruction, and/or weight based d osing when appropriate to reduce radiation dose to as low as reasonably achievable (ALARA). [facility]: Dose Right [facility]: CareDose [facility]: Dose Right [facility]: Teradose 4D [facility]: Smart HomeCon RADIATION DOSE: CT Rad equipment meets quality standard of care and radiation dose reduction techniq ues were employed. CTDIvol: 4.8 mGy. DLP: 220 mGy-cm.mGy. LIMITATIONS: None. FINDINGS: LOWER CHEST: No significant findings. No nodules or infiltrates. NON-CONTRASTED LIVER, SPLEEN, ADRENALS: Evaluation limited by lack of IV contrast. No identified sign ificant masses. PANCREAS: No masses. No peripancreatic inflammatory changes. GALLBLADDER: No identified stones by CT criteria. The wall appears somewhat thickened and edematous. No pericholecystic fluid demonstrated. RIGHT KIDNEY AND URETER: No suspicious masses. Assessment limited by lack of IV contrast. Incidental note is again made of a partially rotated, partially duplicated right kidney; this is better charact erized on comparison contrast-enhanced CT imaging from 2013. No significant calcifications. No hy dronephrosis or hydroureter. LEFT KIDNEY AND URETER: No suspicious masses. Assessment limited by lack of IV contrast. No signifi cant calcifications. No hydronephrosis or hydroureter. AORTA AND RETROPERITONEUM: No aneurysm. No retroperitoneal masses or adenopathy. BOWEL AND PERITONEAL CAVITY: No obvious masses or inflammatory changes. No free fluid. APPENDIX: Normal. PELVIS, BLADDER, AND ABDOMINAL WALL:The bladder is markedly distended; no retained uroliths are evide nt. Incidental note is made of tubal ligation changes. No free fluid or pelvic lymphadenopathy. BONES: No significant findings. OTHER: No other significant finding. IMPRESSION: No evidence of urolithiasis or obstructive uropathy. Incidental finding of a thickened, edematous appearing gallbladder wall suggesting cholecystitis. Otherwise stable CT appearance of th e abdomen and pelvis. COMMENT: Quality ID # [id number]: Final reports with documentation of one or more dose reduction techniques (e.g., Automated exposure control, adjustment of the mA and/or kV according to patient size, use of iterative reconstruction technique) TECHNICAL DOCUMENTATION: JOB ID: [id number] 2010 [employer]- All Rights Reserved Reading location - IP/workstation name: [email or web address]
--- NOTE | 2019-09-29 12:08 | RADIOLOGY REPORT (SQ) ---
EXAM DESCRIPTION: U/S ABDOMEN LIMITED W/O DOP IMAGES COMPLETED DATE/TIME: 09/29/2019 11:36 am REASON FOR STUDY: abd pain COMPARISON: 10/08/2018 TECHNIQUE: Dynamic and static grayscale images acquired of the abdomen and recorded on PACS. Emilyo lorelei selected color Doppler and spectral images recorded. LIMITATIONS: None. FINDINGS: PANCREAS: No masses. Visualized pancreatic duct normal caliber. LIVER: No masses. Echotexture normal. LIVER VASCULATURE: Normal directional flow of the main portal vein and hepatic veins. GALLBLADDER: Small gallstones and a small amount of sludge are present. There is no wall thickening or pericholecystic fluid. ULTRASOUND-DETECTED BROWN'S SIGN: Negative. INTRAHEPATIC DUCTS AND COMMON DUCT: CBD and intrahepatic ducts normal caliber. No filling defects. INFERIOR VENA CAVA: Normal flow. AORTA: No aneurysm. RIGHT KIDNEY: Small, 8.1 cm. Normal cortical thickness. Normal echogenicity. No solid or suspiciou s masses. No hydronephrosis. No calcifications. PERITONEAL AND RIGHT PLEURAL SPACE: No ascites or effusions. OTHER: No other significant findings. IMPRESSION: Cholelithiasis with no evidence of cholecystitis. The right kidney is somewhat small bu t otherwise unremarkable. No other significant finding in the abdomen. TECHNICAL DOCUMENTATION: JOB ID: [id number] 2010 [employer]- All Rights Reserved Reading location - IP/workstation name: [email or web address]
[2019-09-29 12:51] VITALS: BP 106/81
== END 2019-09-29 12:51 | disposition home or self-care (01) ==
LOC: ER 05:16
DX: O90.89 Other complications of the puerperium, not elsewhere classified (principal); K80.20 Calculus of gallbladder without cholecystitis without obstruction; R10.9 Unspecified abdominal pain; R35.0 Frequency of micturition; R11.0 Nausea
CPT/HCPCS: 99284; 96361; 96374; 96375; 36415; 83690; 85025; 81025; 80053; 81001; 76705; 74176; J1885; J2405; J7030

== ENCOUNTER → 2019-12-01 | Outpatient (CLI) | payer OTHER ==
--- NOTE | 2019-12-01 13:35 | WOMENS IMAGING REPORT ---
EXAM DESCRIPTION: U/S BREAST UNILAT LIMITED IMAGES COMPLETED DATE/TIME: 12/01/2019 1:18 pm REASON FOR STUDY: N64.4 MASTODYNIA N64.4 MASTODYNIA COMPARISON: None. TECHNIQUE: Real-time and static grayscale imaging performed of the left breast targeted to the area of clinical/mammographic concern. Selected color Doppler images recorded. LIMITATIONS: None. FINDINGS: MASS: No mass identified. Normal glandular tissue. OTHER: Dilated ducts. Patient is . IMPRESSION: No suspicious findings detected by ultrasound. BIRAD: 2 Benign findings. RECOMMENDATION: RECOMMENDED FOLLOW-UP: Follow-up as clinically indicated. COMMENT: The [employer] [place] [employer] ([employer]) has developed recommendations for screening MRI of the breasts in certain patient populations, to be used in conjunction with mammography. Breast MRI s urveillance may be appropriate for women with more than 20% lifetime risk of developing breast cancer as determined by genetic testing, significant family history of the disease, or history of mantle r adiation for Hodgkins Disease. ACR Practice Guidelines 2008. TECHNICAL DOCUMENTATION: JOB ID: [id number] 2010 [facility]- All Rights Reserved Reading location - IP/workstation name: [email or web address]
== END ==
LOC: WI 12:52
PROVIDERS: ATTEND Family Medicine Geriatric Medicine
DX: N64.4 Mastodynia (principal)
CPT/HCPCS: 76642

== ENCOUNTER 2019-12-07 17:31 | Emergency (ER) | payer OTHER ==
[2019-12-07 18:41] LABS: APPEARANCE,URINE SLIGHTLY-CLOUDY; BILIRUBIN,URINE NEGATIVE (NEGATIVE); COLOR,URINE YELLOW; GLUCOSE, URINE NEGATIVE (NEGATIVE); KETONES,URINE NEGATIVE (NEGATIVE); LEUKOCYTE ESTERASE,URINE SMALL (NEGATIVE); NITRITE,URINE NEGATIVE (NEGATIVE); PROTEIN,URINE NEGATIVE (NEGATIVE); URINE SPECIFIC GRAVITY 1.014; UROBILINOGEN,URINE NEGATIVE mg/dL (<2.0)
[2019-12-07] MEDS ORDERED: ACETAMINOPHEN 325 MG TABLET PO ONE (18:41)
--- NOTE | 2019-12-07 19:27 | RADIOLOGY REPORT (SQ) ---
EXAM DESCRIPTION: CHEST SINGLE VIEW IMAGES COMPLETED DATE/TIME: 12/07/2019 7:19 pm REASON FOR STUDY: cough COMPARISON: 06/25/2019 EXAM PARAMETERS: NUMBER OF VIEWS: One view. TECHNIQUE: Single frontal radiographic view of the chest acquired. RADIATION DOSE: NA LIMITATIONS: None. FINDINGS: LUNGS AND PLEURA: No opacities, masses or pneumothorax. No pleural effusion. MEDIASTINUM AND HILAR STRUCTURES: No masses. Contour normal. HEART AND VASCULAR STRUCTURES: Heart normal in size. Normal vasculature. BONES: No acute findings. HARDWARE: None in the chest. OTHER: No other significant finding. IMPRESSION: NO ACUTE RADIOGRAPHIC FINDING IN THE CHEST. TECHNICAL DOCUMENTATION: JOB ID: [id number] 2010 [employer]- All Rights Reserved Reading location - IP/workstation name: [email or web address]
[2019-12-07] MEDS ORDERED: DEXAMETHASONE 4 MG TABLET PO ONE (20:27)
--- NOTE | 2019-12-07 22:02 | ER Document Report ---
ED General - General Chief Complaint: Fever Stated Complaint: SORE THROAT,COUGH,HEADACHE Primary Care Provider: TANYA AGUIRRE MD [Primary Care Provider] - Follow up as needed Notes: 29-year-old female with no reported past medical history presenting today with 1 day of sore throat, chills, headache, cough. States that she took a Tylenol at 10:00 this morning which helped alleviate her symptoms. She did not believe she was febrile. Does not know what her temp was at home. She has not been around any known sick contacts. She has recently traveled to [place]. She denies any abdominal pain, nausea, vomiting. Her headaches are similar to when she gets her typical headaches. No worse headache of her life or thunderclap headache. No chest pain or shortness of breath. TRAVEL OUTSIDE OF THE [place] IN LAST 30 DAYS: No - Related Data Allergies/Adverse Reactions: No Known Allergies Allergy (Verified 12/07/19 18:19) Past Medical History - Social History Smoking Status: Never Smoker Chew tobacco use (# tins/day): No Frequency of alcohol use: None Drug Abuse: None Family History: Arthritis, CAD, COPD, CVA, DM, Hyperlipidemia, Hypertension, Malignancy - Past Medical History Cardiac Medical History: Denies: Hx Hypertension, Hx Pulmonary Embolism, Hx Heart Murmur Pulmonary Medical History: Reports: Hx Pneumonia Denies: Hx Asthma, Hx Sleep Apnea, Hx Tuberculosis Neurological Medical History: Reports: Hx Migraine. Denies: Hx Cerebrovascular Accident, Hx Seizures Endocrine Medical History: Denies: Hx Hyperthyroidism, Hx Hypothyroidism Renal/ Medical History: Denies: Hx Kidney Stones, Hx Ovarian Cysts, Hx Peritoneal Dialysis, Hx Pelvic Inflammatory Disease Malignancy Medical History: Denies: Hx Breast Cancer, Hx Cervical Cancer, Hx Ovarian Cancer GI Medical History: Denies: Hx Gastroesophageal Reflux Disease, Hx Hiatal Hernia, Hx Ulcer Musculoskeletal Medical History: Denies Hx Fibromyalgia Psychiatric Medical History: Denies: Hx Bipolar Disorder, Hx Depression, Hx Post Traumatic Stress Disorder, Hx Schizophrenia Traumatic Medical History: Denies: Hx Fractures Infectious Medical History: Denies: Hx HIV Past Surgical History: Reports: Hx Appendectomy, Hx Section - x3 - Immunizations Immunizations up to date: Yes Hx Diphtheria, Pertussis, Tetanus Vaccination: Yes Review of Systems - Review of Systems Constitutional: See HPI EENT: See HPI Cardiovascular: No symptoms reported Respiratory: No symptoms reported Gastrointestinal: No symptoms reported Genitourinary: No symptoms reported Female Genitourinary: No symptoms reported Musculoskeletal: No symptoms reported Skin: No symptoms reported Hematologic/Lymphatic: No symptoms reported Neurological/Psychological: No symptoms reported Physical Exam - Vital signs Vitals: Temp Pulse Resp BP Pulse Ox 101.7 F H 100 20 106/71 76 L 12/07/19 18:11 12/07/19 18:11 12/07/19 18:11 12/07/19 18:11 12/07/19 18:11 Interpretation: Febrile - Notes Notes: Adult General: GENERAL: Alert, interacts well. No acute distress HEAD: Normocephalic, atraumatic EYES: Pupils equal, round and reactive to light. Extraocular movements intact. ENT: Oral mucosa moist, tongue midline. Oropharynx unremarkable. Airway patent. Nares patent. NECK: Full range of motion. Supple. Trachea midline. No lymphadenopathy. LUNGS: Clear to auscultation bilaterally, no wheezes, rales, or rhonchi. No respiratory distress. Nontender chest wall. HEART: Regular rate and rhythm. No murmurs, rubs or gallops. ABDOMEN: Soft, nontender. Nondistended. (-) [place] sign. Bowel sounds present in all 4 quadrants. No rebound, guarding or masses. GENITOURINARY: Deferred EXTREMITIES: Moves all 4 extremities spontaneously. No edema, normal radial and dorsal pedis pulses bilaterally. No cyanosis. BACK: No cervical, thoracic, lumbar midline tenderness. Moves all extremities with full range of motion. NEUROLOGICAL: Alert and oriented x3. Normal speech. Cranial nerves II through XII grossly intact. Strength 5/ 5 in all extremities. PSYCH: Normal affect, normal mood. SKIN: Warm, dry, normal turgor. No rashes or lesions noted. Course - Re-evaluation Re-evalutation: 12/07/19 20:24 Patient is in no acute distress. Reports that the tylenol has helped alleviate her symptoms. Her chest xray shows no acute findings. Her urinalysis shows mild leukocysterase but she complains of no urinary symptoms. Is uncertain of her last menstrual cycle- has not had one for a year. It has not returned after she had her child. Will test her for strep, flu and covid. 12/07/19 22:02 Rapid strep is negative. Still pending flu. 12/07/19 22:27 Flu is negative. 12/07/19 22:28 She is no longer febrile. I discussed these findings with the patient. She reports improvement in her symptoms. Will discharge the patient with close follow up for her pharyngitis. She can return to the emergency department if she has worsening symptoms or the development of new symptoms. Patient acknowledges and verbalizes understanding of instructions and plan. All questions answered. - Vital Signs Vital signs: Temp Pulse Resp BP Pulse Ox 101.7 F H 100 20 106/71 76 L 12/07/19 18:11 12/07/19 18:11 12/07/19 18:11 12/07/19 18:11 12/07/19 18:11 - Laboratory Laboratory results interpreted by me: 12/07/19 18:19 Urine Blood SMALL H Ur Leukocyte Esterase SMALL H Discharge - Discharge Clinical Impression: Person under investigation for COVID-19 Pharyngitis Qualifiers: Pharyngitis/tonsillitis etiology: unspecified etiology Qualified Code(s): J02.9 - Acute pharyngitis, unspecified Condition: Stable Disposition: HOME, SELF-CARE Instructions: Acetaminophen, Fever ([facility]), Sore Throat ([facility]), COVID-19 Guidance for Persons Under Investigation Additional Instructions: Your work-up has been unremarkable at this time. Please continue to take Tylenol for your symptoms. Please follow-up with your primary care provider as soon as possible. You are a person under investigation for covid at this time. Please follow instructions provided on the discharge instructions. Please return to the emergency department for worsening symptoms or development of new symptoms. Referrals: TANYA AGUIRRE MD [Primary Care Provider] - Follow up as needed
[2019-12-07 22:35] LABS: A TYPE INFLUENZA AG NEGATIVE (NEGATIVE); B INFLUENZA AG NEGATIVE (NEGATIVE)
[2019-12-07 22:37] VITALS: BP 107/77
== END 2019-12-07 22:58 | disposition home or self-care (01) ==
LOC: ER 17:31
DX: U07.1 COVID-19 (principal); J02.9 Acute pharyngitis, unspecified; R51 Headache; R05 Cough; R68.83 Chills (without fever)
CPT/HCPCS: 99284; 87070; 87880; 87635; 81001; 87804; 71045; J8540; C9803

== ENCOUNTER 2020-03-03 21:02 | Emergency (ER) | payer MEDICAID, OTHER ==
--- NOTE | 2020-03-03 21:21 | ER Document Report ---
ED Medical Screen (RME) - General Chief Complaint: Chest Pain Stated Complaint: CHEST PAIN/HEADACHE Time Seen by Provider: 03/03/20 21:12 Primary Care Provider: TANYA AGUIRRE MD [Primary Care Provider] - Follow up as needed Mode of Arrival: Ambulatory Information source: Patient Notes: 29-year-old female presented to ED for complaint of chest pain that started yes terday about 1 PM. She states is been constant since yesterday. She states that the pain is to the upper left chest. She states she has had this child's pain in the past states they were not able to figure out what was the problem at the time that she had it last time. Patient is alert oriented respirations regular nonlabored speaking in full sentences. Patient denies any cough congestion fevers or any Covid symptoms. This menstrual cycle started around February 22, 2020. I have greeted and performed a rapid initial assessment of this patient. A comprehensive ED assessment and evaluation of the patient, analysis of test results and completion of medical decision making process will be conducted by an additional ED providers. TRAVEL OUTSIDE OF THE [place] 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 Family history: Reviewed & Not Pertinent - Past Medical History Cardiac Medical History: Reports: None Pulmonary Medical History: Reports: Hx Pneumonia EENT Medical History: Reports: None Neurological Medical History: Reports: Hx Migraine Endocrine Medical History: Reports: None Renal/ Medical History: Reports: None Malignancy Medical History: Reports: None GI Medical History: Reports: None Musculoskeltal Medical History: Reports None Skin Medical History: Reports None Psychiatric Medical History: Reports: None Traumatic Medical History: Reports: None Infectious Medical History: Reports: None Past Surgical History: Reports: Hx Appendectomy, Hx Section - x3 - Immunizations Immunizations up to date: Yes Hx Diphtheria, Pertussis, Tetanus Vaccination: Yes - July 2019 Physical Exam - Vital signs Vitals: Temp Pulse Resp BP Pulse Ox 98.4 F 100 20 113/73 97 03/03/20 21:13 03/03/20 21:13 03/03/20 21:13 03/03/20 21:13 03/03/20 21:13 Course - Vital Signs Vital signs: Temp Pulse Resp BP Pulse Ox 98.4 F 100 20 113/73 97 03/03/20 21:13 03/03/20 21:13 03/03/20 21:13 03/03/20 21:13 03/03/20 21:13 Doctor's Discharge - Discharge Referrals: TANYA AGUIRRE MD [Primary Care Provider] - Follow up as needed
[2020-03-03 22:09] LABS: ABSOLUTE EOSINOPHILS # (AUTO) 0.2 10^3/uL (0.0-0.6); ABSOLUTE LYMPHOCYTES (AUTO) 2.5 10^3/uL (0.5-4.7); ABSOLUTE MONOCYTES (AUTO) 0.9 10^3/uL (0.1-1.4); ABSOLUTE NEUT (AUTO) 10.2 10^3/uL (1.7-8.2); BASOPHILS % (AUTO) 0.3 % (0-2); EOSINOPHILS % (AUTO) 1.6 % (0-6); HEMATOCRIT 35.7 % (36.0-47.0); HEMOGLOBIN 11.9 g/dL (12.0-15.5); LYMPHOCYTES % (AUTO) 17.7 % (13-45); MEAN CORPUSCULAR HEMOGLOBIN 27.1 pg (27.0-33.4); MEAN CORPUSCULAR HGB CONC 33.3 g/dL (32.0-36.0); MEAN CORPUSCULAR VOLUME 81 fl (80-97); MONOCYTES % (AUTO) 6.7 % (3-13); PLATELET COUNT 352 10^3/uL (150-450); RED BLOOD COUNT 4.38 10^6/uL (3.72-5.28); RED CELL DISTRIBUTION WIDTH 14.2 % (11.5-14.0); SEGMENTED NEUTROPHILS % (AUTO) 73.7 % (42-78); TOTAL CELLS COUNTED % (AUTO) 100 %; WHITE BLOOD COUNT 13.9 10^3/uL (4.0-10.5)
[2020-03-03 22:24] LABS: ALBUMIN 3.9 g/dL (3.5-5.0); ALKALINE PHOSPHATASE 104 U/L (38-126); ANION GAP 5 (5-19); ASPARTATE AMINO TRANSFERASE 21 U/L (14-36); BILIRUBIN,DIRECT 0.1 mg/dL (0.0-0.4); BILIRUBIN,TOTAL 0.7 mg/dL (0.2-1.3); BLOOD UREA NITROGEN 9 mg/dL (7-20); CARBON DIOXIDE 29 mmol/L (22-30); CHLORIDE 104 mmol/L (98-107); GLUCOSE 103 mg/dL (75-110); POTASSIUM 3.9 mmol/L (3.6-5.0)
--- NOTE | 2020-03-03 22:32 | RADIOLOGY REPORT (SQ) ---
CHEST X-RAY 2 view on 03/03/2020 at 9:51 PM CLINICAL INDICATION: Chest pain COMPARISON: 12/07/2019 FINDINGS: The lungs are clear. Cardiac, hilar and mediastinal contours are within normal limits. Pulmonary vascularity is within normal limits. No bony abnormality is noted. IMPRESSION: No active disease.
[2020-03-04] MEDS ORDERED: CEPHALEXIN 500 MG CAPSULE PO ONE (00:43)
--- NOTE | 2020-03-04 00:47 | ER Document Report ---
ED General - General Chief Complaint: Chest Pain Stated Complaint: CHEST PAIN/HEADACHE Time Seen by Provider: 03/03/20 21:12 Primary Care Provider: TANYA AGUIRRE MD [Primary Care Provider] - Follow up as needed Mode of Arrival: Ambulatory TRAVEL OUTSIDE OF THE [place] IN LAST 30 DAYS: No - HPI Context: Time: 00 30 Chief Complaint: [Left-sided chest pain] [This is a 29-year-old female presenting with a chief complaint of left-sided chest pain. Patient is breast-feeding her 7-month-old child and states that she started having some chest pain on the left side of her chest yesterday and the pain has gotten worse throughout the day today. Patient denies recent trauma, history of heart trouble, history of PE, history of travel in the past 30 days, rash, bruising or swelling. ] History obtained from [patient] Symptoms began:[Yesterday] Onset: [Gradual] Timing: [Started yesterday morning] Quality: [Sharp] Intensity: [4 out of 5] Location: [Left chest] Radiation: [Denies] [The pain does not migrate to a new location.] Aggravating factors: Movement of left upper extremity, palpation of the left chest Relieving factors: [none] [Denies] SOB [Denies] nausea [Denies] vomiting [Denies] sweats [Denies] fever [Denies] cough [Denies] calf or leg swelling or pain - Related Data Allergies/Adverse Reactions: No Known Allergies Allergy (Verified 12/07/19 18:19) Past Medical History - General Information source: Patient - Social History Smoking Status: Never Smoker Cigarette use (# per day): No Frequency of alcohol use: None Drug Abuse: None 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 Family History: Reviewed & Not Pertinent, Arthritis, CAD, COPD, CVA, DM, Hyperlipidemia, Hypertension, Malignancy - Past Medical History Cardiac Medical History: Reports: None Pulmonary Medical History: Reports: Hx Pneumonia EENT Medical History: Reports: None Neurological Medical History: Reports: Hx Migraine Endocrine Medical History: Reports: None Renal/ Medical History: Reports: None Malignancy Medical History: Reports: None GI Medical History: Reports: None Musculoskeletal Medical History: Reports None Skin Medical History: Reports None Psychiatric Medical History: Reports: None Traumatic Medical History: Reports: None Infectious Medical History: Reports: None Past Surgical History: Reports: Hx Appendectomy, Hx Section - x3 - Immunizations Immunizations up to date: Yes Hx Diphtheria, Pertussis, Tetanus Vaccination: Yes - July 2019 Review of Systems - Review of Systems Notes: Review of systems as below unless otherwise stated in HPI. CONSTITUTIONAL [No] fever, [No] chills. EYES [No] eye pain. ENT [No] URI symptoms, [No] sore throat, [No] ear pain. CARDIOVASCULAR Positive chest pain, [No] palpitations, [No] edema. RESPIRATORY [No] Cough, [No] SOB, [No] wheezing. GASTROINTESTINAL [No] abdominal pain, [No] nausea, [No] Diarrhea, [No] Vomiting, [No] constipation, [No] melena, [No] rectal bleeding. GENITOURINARY [No] dysuria, [No] urinary frequency, [No] hematuria, [No] urinary urgency, [No] vaginal discharge, [No] vaginal bleeding. MUSCULOSKELETAL [No] Back pain. SKIN [No] Rash. NEUROLOGIC [No] Headache, [No] recent seizures, [No] paralysis,[No] parathesias. ENDOCRINE [No] polyuria. HEMO/LYMPATIC [No] easy brusing PSYCHIATRIC [No] depression. Physical Exam - Vital signs Vitals: Temp Pulse Resp BP Pulse Ox 98.4 F 100 20 113/73 97 03/03/20 21:13 03/03/20 21:13 03/03/20 21:13 03/03/20 21:13 03/03/20 21:13 - Notes Notes: CONSTITUTIONAL [Vital signs reviewed, Patient appears comfortable, Alert and oriented X 3, Normal stature.] HEAD [Atraumatic, Normocephalic.] EYES [Eyes are normal to inspection, No discharge from eyes, Extraocular muscles intact, Sclera are normal, Conjunctiva are normal.] ENT [External ears normal to inspection, Nose examination normal, Mouth normal to inspection.] NECK [Normal ROM, No jugular venous distention, No meningeal signs, ] RESPIRATORY Breath sounds normal, No respiratory distress.] CHEST Breast examination was done with female nurse interior assemblies developer prover present. Breast exam is significant for an area of erythema adjacent to the areola of the left breast in the 11 o'clock position. There is another area of erythema that is present on the left chest wall inferior to the clavicle. Palpation of these areas elicits a painful response and she states that exacerbates his symptoms. Palpation of the right breast reveals no tenderness. No erythema is seen on the right breast CARDIOVASCULAR [RRR, No murmurs, Normal S1 S2, No rub, No gallop.] ABDOMEN [Abdomen is nontender, No pulsatile masses, No other masses, Bowel sounds normal, No distension, No peritoneal signs, No hernias.] BACK [There is no CVA Tenderness, There is no tenderness to palpation, Normal inspection.] UPPER EXTREMITY [Inspection normal, No cyanosis, No clubbing, No edema, LOWER EXTREMITY [Inspection normal, No cyanosis, No clubbing, No edema, No calf tenderness, NEURO [No focal motor deficits, No focal sensory deficits, Speech normal.] SKIN [Skin is warm, Skin is dry, Skin is normal color.] PSYCHIATRIC [Normal affect. ] Course - Re-evaluation Re-evalutation: 03/04/20 00:57 Results of ED MSE, diagnosis, plan of treatment, follow-up all discussed with patient. When asked if all the patient's questions were answered the patient answered in the affirmative. When asked if all the patient's concerns for this visit were addressed, patient again answered in the affirmative. Emergency signs and symptoms, reasons to return to the emergency department discussed with patient. - Vital Signs Vital signs: Temp Pulse Resp BP Pulse Ox 98.4 F 100 20 113/73 97 03/03/20 21:22 03/03/20 21:13 03/03/20 21:13 03/03/20 21:13 03/03/20 21:13 - Laboratory Result Diagrams: 03/03/20 21:36 03/03/20 21:36 Laboratory results interpreted by me: 03/03/20 21:36 WBC 13.9 H Hgb 11.9 L Hct 35.7 L RDW 14.2 H Absolute Neuts (auto) 10.2 H - Diagnostic Test Radiology reviewed: Reports reviewed - EKG Interpretation by Me Additional EKG results interpreted by me: 03/04/20 00:57 EKG obtained on 03/03/2020 at 2107 hrs. was interpreted by this MD. findings normal sinus rhythm, rate 96, normal axis, ND interval appears to be within normal limits, P waves preceding QRS complexes, QRS complexes appear narrow, QTC is 415, there are no obvious patterns of ST segment elevation, depression or reciprocal changes seen to suggest acute myocardial ischemia or infarction. Impression: Normal sinus rhythm with nonspecific ST segments. Discharge - Discharge Clinical Impression: Mastitis, left, acute Condition: Stable Disposition: HOME, SELF-CARE Additional Instructions: Return to the Emergency Department without delay if any worse. HOME CARE INSTRUCTIONS & INFORMATION: Thank you for choosing us for your medical needs. We hope you're satisfied with the care you received. After you leave, you must properly care for your problem and, at the same time, observe its progress. Any condition can change. Some illnesses can change rapidly over hours or days. If your condition worsens, return to the Emergency Department or see your physician promptly. ABOUT YOUR X-RAYS AND EKG'S: If you had an EKG or X-rays taken, they have been read by the Emergency Physician. The X-rays and EKG's will also be read by a Radiologist or Metallurgist Process within 24 hours. If discrepancies are noted, you will be notified by telephone. Please be certain the ED has a correct telephone number & address where you can be reached. Also, realize that some fractures or abnormalities do not show up on initial X-rays. If your symptoms continue, see your physician. ABOUT YOUR LABORATORY TEST: If you had laboratory tests, the results have been reviewed by the Emergency Physician. Some test results (for example cultures) may not be available for several days. You will be contacted if any test result shows you need additional treatment. Please be certain the ED has a correct telephone number and address where you can be reached. ABOUT YOUR MEDICATIONS: You will receive instructions on how to take your medi cine on the prescription label you receive. Additional information may be provided by the Pharmacy. If you have questions afterwards, call the ED for clarification or further instructions. Some prescribed medications may cause drowsiness. Do not perform tasks such as driving a car or operating machinery without consulting your Pharmacist. If you feel you need a refill of pain medication, your condition will need re-evaluation. Please do not call for a refill of any medication. ABOUT YOUR SIGNATURE: Signature of this document acknowledges to followin. Understanding that you received emergency treatment and that you may be released before al medical problems are known or treated. Please be certain the ED has a correct phone number & address where you can be reached. 2. Acknowledgement that you will arrange for follow-up care as recommended. 3. Authorization for the Emergency Physician to provide information to your follow-up Physician in order to maximize your care. AT ANY TIME, IF YOUR SYMPTOMS CHANGE SIGNIFICANTLY OR WORSEN OR YOU DEVELOP NEW SYMPTOMS, RETURN TO THE EMERGENCY DEPARTMENT IMMEDIATELY FOR RE-EVALUATION. OUR GOAL IS TO PROVIDE EXCELLENT MEDICAL CARE! WE HOPE THAT WE HAVE MET YOUR EXPECTATIONS DURING YOUR EMERGENCY DEPARTMENT VISIT AND THAT YOU FEEL YOU HAVE RECEIVED EXCELLENT CARE! Mastitis (Breast Infection) You have an infection in your breast, called mastitis. This is due to bacteria invading the breast through the milk ducts. Mastitis can be serious, and must be treated carefully. Antibiotics are required. Usually, warm packs are recommended. Some impr ovement should be evident within 24 to 36 hours. If you're breast-feeding, you should continue to nurse the baby. The baby won't be harmed by the milk from the infected breast. If you stop nursing, the breast must be pumped. If milk builds up in the breast, the infection can dramatically worsen! Follow-up care is important to check for abscess (boil) formation or resistant infection. If you develop fever, chills, or if the area of infection is becoming rapidly more swollen or painful, call the doctor at once. Prescriptions: Cephalexin Monohydrate [Keflex 500 mg Capsule] 500 mg PO QID 10 Days #40 capsule Referrals: TANYA AGUIRRE MD [Primary Care Provider] - Follow up as needed
[2020-03-04 01:27] VITALS: BP 112/78
--- NOTE | 2020-03-04 08:39 | EKG REPORT ---
SEVERITY:- BORDERLINE ECG - SINUS RHYTHM BORDERLINE T ABNORMALITIES, ANTERIOR LEADS : Confirmed by: David Hampton MD 04-Mar-2020 08:38:16
== END 2020-03-04 01:25 | disposition home or self-care (01) ==
LOC: ER 21:02
DX: N61.0 Mastitis without abscess (principal); R07.9 Chest pain, unspecified; Z87.01 Personal history of pneumonia (recurrent)
CPT/HCPCS: 36415; 71046; 80053; 83735; 84484; 85025; 93005; 93010; 99285